=== PATIENT | female | born 1995 | race African-American/Black ===

== ENCOUNTER → 2019-10-09 | Outpatient (REF) | payer OTHER ==
[2019-10-09 18:42] LABS: BASO % 0.2 % (0.0-1.0); EOS # 0.3 10^3/uL (0.0-0.5); EOS % 6.1 % (0.0-3.0); LYMPH # 2.5 10^3/uL (1.5-5.0); LYMPH % 60.7 % (24.0-44.0); MEAN CORPUSCULAR HEMOGLOBIN 35.1 pg (27.0-33.0); MEAN CORPUSCULAR HGB CONC 33.2 g/dl (32.0-36.5); MEAN CORPUSCULAR VOLUME 105.9 fl (80.0-96.0); MONO # 0.2 10^3/uL (0.0-0.8); MONO % 3.9 % (0.0-5.0); NEUTROPHILS # 1.2 10^3/uL (1.5-8.5); NEUTROPHILS % 28.1 % (36.0-66.0); PLATELET COUNT, AUTOMATED 119 10^3/uL (150-450); RED BLOOD COUNT 1.85 10^6/uL (4.00-5.40); WHITE BLOOD COUNT 4.1 10^3/uL (4.0-10.0)
[2019-10-09 18:58] LABS: HEMATOCRIT 19.6 % (36.0-47.0); HEMOGLOBIN 6.5 g/dl (12.0-15.5)
[2019-10-09 19:19] LABS: ALBUMIN 4.3 GM/DL (3.2-5.2); ALT/SGPT 41 U/L (12-78); BILIRUBIN,TOTAL 1.3 MG/DL (0.2-1.0); BLOOD UREA NITROGEN 11 MG/DL (7-18); CARBON DIOXIDE LEVEL 26 MEQ/L (21-32); CHLORIDE LEVEL 105 MEQ/L (98-107); CHOLESTEROL LEVEL 120 MG/DL (<200); CREATININE FOR GFR 0.73 MG/DL (0.55-1.30); FREE T4 1.39 NG/DL (0.76-1.46); GLOMERULAR FILTRATION RATE > 60.0 (>60); GLUCOSE, FASTING 77 MG/DL (70-100); HDL CHOLESTEROL 32 MG/DL (>40); HEMOGLOBIN A1c 5.6 %; LDL CHOLESTEROL 72 MG/DL (<100); NON-HDL-C 88 MG/DL; POTASSIUM SERUM 3.5 MEQ/L (3.5-5.1); SODIUM LEVEL 139 MEQ/L (136-145); TOTAL PROTEIN 7.5 GM/DL (6.4-8.2); TRIGLYCERIDES LEVEL 81 MG/DL (<150)
[2019-10-09 19:37] LABS: TOTAL 25(OH) VITAMIN D 8.4 NG/ML (30.0-100.0)
== END ==
LOC: M LAB REF 18:07
PROVIDERS: ATTEND Nurse Practitioner Family
DX: Z13.29 Encounter for screening for other suspected endocrine disorder (principal)

== ENCOUNTER 2019-10-19 15:45 | Inpatient (IN) | payer OTHER ==
[~2019-10-19] VITALS: Ht 160 cm; Wt 60.9 kg
[2019-10-19] VITALS (8 sets, daily range): BP systolic 86–121; BP diastolic 54–78
[2019-10-19 16:22] LABS: MEAN CORPUSCULAR HEMOGLOBIN 33.9 pg (27.0-33.0); MEAN CORPUSCULAR HGB CONC 31.9 g/dl (32.0-36.5); MEAN CORPUSCULAR VOLUME 106.2 fl (80.0-96.0); RED BLOOD COUNT 1.77 10^6/uL (4.00-5.40)
[2019-10-19 16:27] LABS: PLATELET COUNT, AUTOMATED 46 10^3/uL (150-450); WHITE BLOOD COUNT 1.4 10^3/uL (4.0-10.0)
[2019-10-19 16:28] LABS: HEMATOCRIT 18.8 % (36.0-47.0)
[2019-10-19 16:51] LABS: HCG, SERUM QUALITATIVE NEGATIVE (NEGATIVE)
[2019-10-19 17:08] LABS: ANISOCYTOSIS 2+; ATYPICAL LYMPH 6 % (0-5); BASOPHILS 1 % (0-1); EOSINOPHILS 1 % (0-3); HYPOCHROMASIA 1+; LYMPHOCYTES 37 % (16-44); MONOCYTES 8 % (0-5); MYELOCYTES 2 % (0-0); NEUTROPHILS 44 % (28-66)
[2019-10-19 17:09] LABS: ALBUMIN 4.3 GM/DL (3.2-5.2); ALT/SGPT 35 U/L (12-78); BLOOD UREA NITROGEN 15 MG/DL (7-18); CALCIUM LEVEL 8.4 MG/DL (8.5-10.1); CARBON DIOXIDE LEVEL 23 MEQ/L (21-32); CHLORIDE LEVEL 99 MEQ/L (98-107); CREATININE FOR GFR 0.93 MG/DL (0.55-1.30); FERRITIN 696 NG/ML (8-252); FREE THYROXINE INDEX 3.4 % (1.3-4.8); GLOMERULAR FILTRATION RATE > 60.0 (>60); GLUCOSE, FASTING 92 MG/DL (70-100); IRON (FE) 122 UG/DL (50-170); PERCENT SATURATION 39.4 % (13.2-45.0); PLATELET ESTIMATE DECREASED (NORMAL); POTASSIUM SERUM 3.8 MEQ/L (3.5-5.1); SODIUM LEVEL 134 MEQ/L (136-145); SPHEROCYTES 2+; T UPTAKE 28 % (30-39); THYROXINE (T4) 12.3 UG/DL (4.5-12.0); TOTAL IRON BINDING CAPACITY 310 UG/DL (250-450); TOTAL PROTEIN 7.5 GM/DL (6.4-8.2)
[2019-10-19 17:21] LABS: INR 1.18; PROTHROMBIN TIME 14.7 SECONDS (11.8-14.0)
[2019-10-19 17:22] LABS: PARTIAL THROMBOPLASTIN TIME 32.9 SECONDS (25.0-38.4)
[2019-10-19 18:12] LABS: BILIRUBIN,DIRECT 0.3 MG/DL (0.0-0.2)
[2019-10-19 18:15] LABS: LDH LACTATE DEHYDROGENASE 4896 U/L (84-246)
[2019-10-19] MEDS ORDERED: ACETAMINOPHEN TAB 650MG DOSE (2X325MG) PO ONE (19:45)
[2019-10-19] MEDS ORDERED: ACETAMINOPHEN 325 MG TAB As Ordered ONE (19:45)
--- NOTE | 2019-10-19 19:57 | HPEPDOC ---
General Date of Admission Oct 19, 2019 at 19:06 Date of Service: Oct 19, 2019 Chief Complaint The patient is a 24-year-old female admitted with a reason for shortness of breath with exertion Source: Patient, EMS notes reviewed Exam Limitations: No limitations Timing/Duration: Getting worse Severity: Moderate Associated Symptoms: Chills, Loss of appetite, Dizziness History of Present Illness Pt is a 24 year old female who presented to the ED with symptoms of fatigue, dizziness on standing and loss of appetite. Pt reported Sx of fatigue started x 1 month prior; She felt tired after a full night sleep; some dizziness & blurred vision on standing. Appetite had also decreased, she went from 3 to 1 meal/day as she wasn't hungry. Fatigue worsened over the past 2-3 days, last night she noted chills. Pt denied similar episodes in the past. She has some RLQ pain but attributes that to constipation x 1 week - this is a chronic issue. A cousin is the only person who has needed transfusions wile . She denied any recent travel. Daughter has a cold. is active . She is not menstruating. Too iron while but no Dx of anemia prior or since. 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 Pt had seen her PCP on the who advised her to go to hospital for assessment however, she hadn't felt 'bad' until the past couple of days. Home Medications No Active Prescriptions or Reported Meds Allergies Coded Allergies: No Known Allergies (Unverified , 10/19/19) Past Medical History Medical History unremarkable Surgical History none Family History Significant Family History: Noncontributory Patient's family history was reviewed and is currently noncontributory to current hospitalization Social History * Smoker: Denies Alcohol: rarely (2-3 glasses of wine weekends ) Drugs: denies Recent Travel/Sick Contacts: Denies: Recent travel with one daughter, 2 yo. 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 Previously a [id number] mother. A-FIB/CHADSVASC A-FIB History Current/History of A-Fib/PAF?: No Current PO Anticoag Therapy: No Review of Systems Constitutional: Reports: Fatigue; Denies: Fever, Night Sweats Eyes: Reports: Vision change (blurred vision ); Denies: Pain ENT: Reports: Head Aches; Denies: Ear Pain Skin: Denies: Rash, Lesions, Breakdown Pulmonary: Denies: Dyspnea, Cough Cardiovascular: Denies: Chest Pain, Palpitations, Edema Gastrointestinal: Reports: Abdominal Pain (RLQ ), Constipation; Denies: Nausea, Vomiting, Diarrhea, Melena Genitourinary: Reports: Incontinence; Denies: Dysuria, Frequency, Hematuria Hematologic: Denies: Bruising Musculoskeletal: Denies: Neck Pain, Back Pain, Joint Pain, Muscle Pain, Spasms Neurological: Denies: Weakness, Numbness, Change in speech, Confusion Psych: Reports: Mood Normal; Denies: Memory Issues Physical Examination General Exam: Positive: Alert, Cooperative, No Acute Distress Eye Exam: Positive: PERRLA, Conjunctiva & lids normal, EOMI; Negative: Sclera icteric ENT Exam: Positive: Atraumatic, Mucous membr. moist/pink, Pharynx Normal, Tongue Midline; Negative: Pharyngeal Edema Neck Exam: Positive: Supple; Negative: JVD, thyromegaly, Lymphadenopathy Chest Exam: Positive: Clear to auscultation, Normal air movement Heart Exam: Positive: Tachycardic, Regular Rhythm, Normal S1, Normal S2; Negative: Gallops, Murmurs, Rubs Abdomen Exam: Positive: BS Hypoactive, Soft, Tenderness (RLQ); Negative: Hepatospenomegaly, Mass Extremity Exam: Positive: Normal pulses; Negative: Clubbing, Cyanosis, Edema Skin Exam: Positive: Nl turgor and temperature; Negative: Rash Neuro Exam: Positive: Normal Speech, Strength at 5/5 X4 ext Psych Exam: Positive: Mental status NL, Mood NL, Oriented x 3 Vital Signs Vital Signs Date Time Temp Pulse Resp B/P (MAP) Pulse Ox O2 Delivery O2 Flow Rate FiO2 10/19/19 18:15 114 16 117/60 (79) 99 Room Air 10/19/19 15:45 97.8 Laboratory Data Labs 24H Laboratory Tests 2 10/19/19 16:07: Neutrophils # (Auto) , Reticulocyte # (auto) 3.7L, Nucleated Red Blood Cells % (auto) 0.0, Neutrophils 44, Band Neutrophils 1, Lymphocytes (Manual) 37, Monocytes (Manual) 8H, Eosinophils (Manual) 1, Basophils (Manual) 1, Myelocytes 2H, Atypical Lymphocytes 6H, Hypochromasia 1+, Anisocytosis 2+, Macrocytosis 2+, Spherocytes 2+, Platelet Estimate DECREASED, Immature Platelet Fraction 4.5, Percent Reticulocyte Count 0.2L, Reticulocyte Hemoglobin Equivalent 41.2H, Sickle Cell Screen NEGATIVE, Prothrombin Time 14.7H, Prothromb Time International Ratio 1.18, Activated Partial Thromboplast Time 32.9, Fibrinogen 247, Anion Gap 12, Glomerular Filtration Rate > 60.0, Calcium Level 8.4L, Iron Level 122, Total Iron Binding Capacity 310, Transferrin % Saturation 39.4, Ferritin 696H, Total Bilirubin 1.0, Direct Bilirubin 0.3H, Aspartate Amino Transf (AST/SGOT) 118H, Alanine Aminotransferase (ALT/SGPT) 35, Alkaline Phosphatase 36L, Lactate Dehydrogenase 4896H, Total Protein 7.5, Albumin 4.3, Albumin/Globulin Ratio 1.34, Thyroid Stimulating Hormone (TSH) 1.010, Free Thyroxine Index 3.4, Thyroxine (T4) 12.3H, Triiodothyronine (T3) Uptake 28L, Human Chorionic Gonadotropin, Qual NEGATIVE 10/19/19 17:21: Differential Slide Review Report, Peripheral Blood Smear Path Consult PERIPHERAL SMEAR CBC/BMP Laboratory Tests 10/19/19 16:07 Microbiology Microbiology 10/19/19 Blood Culture, Received Pending 10/19/19 Blood Culture, Received Pending Assessment/Plan Pt is a 24 year old female who presented to the ED with symptoms of fatigue, dizziness on standing and loss of appetite. Pt reported Sx of fatigue started x 1 month prior; She felt tired after a full night sleep; some dizziness & blurred vision on standing. Appetite had also decreased, she went from 3 to 1 meal/day as she wasn't hungry. Fatigue worsened over the past 2-3 days, last night she noted chills. Pt denied similar episodes in the past. She has some RLQ pain but attributes that to constipation x 1 week - this is a chronic issue. A cousin is the only person who has needed transfusions wile . She denied any recent travel. Daughter has a cold. is active . She is not menstruating, has never been told she is anemic. 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 Pt had seen her PCP on the who advised her to go to hospital for assessment however, she hadn't felt 'bad' until the past couple of days. Pt is conversant when seen sitting up in bed. NAD. Pancytopenia - hgb 6.0, WBC, 1.4, RBC 1.77, Plt 46, retic 3.7. LDH is 4896. SS screen negati ve. Symptomatic anemia Pending: peripheral smear, haptoglobin, B12, Folate, IS, HIV Ag/Ab, Direct Gonzalez, Flow cyto, UA reflex culture, liver USG, KUB, blood culture X 2 Transfuse 3 units PRBCs Will c/w telemetry monitorign Repeat CBC with diff. am; daily CBC, BMP Hematology consulted and has seen the pt in the ER (Dr. Erika Altamirano) Leukopenia Hepatitis Profile / HIV workup pending Thrombocytopenia No evidence of bleeding at this time Remains hemodynamically stable Continue to monitor counts Elevated AST / ALT - Will check Hepatitis profile - Liver US pending Fever (101.2) - Etiology unclear - ROS negative for any source - Hemodynamically stable - No lactic acidosis - Blood cultures pending, UA / urine culture pending - Will continue to monitor Hyponatremia (mild) - possibly 2/2 hypotonic hypovolemic etiology - Will hold off on work up at this point - Will repeat lab work in AM DVT prophylaxis - TEDs/sequentials Plan / VTE VTE Prophylaxis Ordered?: Yes Attending Note Attending Note I have reviewed the documentation and assessed the patient independently. I have made necessary revisions as needed. I agree with the findings, assessment and plan stated above. - Patient presented to the emergency room after complaining of shortness of breath with exertion - Physical is unrevealing; however, patient was noted to be febrile in the emergency room at 101.2 - Lab work revealed a hemoglobin of 6.0; as well as pancytopenia. WBC of 1.4, ANC of 630 - Lactic acid has been noted to be negative - Will perform full septic workup; chest x-ray, blood cultures, urine analysis, urine cultures - Will start cefepime for empiric coverage of febrile neutropenia - Will start 2 units of PRBC transfusion - Hematology has been called on consultation; patient was evaluated in the emergency room RAGHAV WRIGHT PA-C Oct 19, 2019 19:57 JOSAFAT PAULINO MD Oct 20, 2019 02:06
--- NOTE | 2019-10-19 22:06 | CR ---
DATE OF CONSULTATION: 10/19/2019 REASON FOR CONSULTATION: Pancytopenia. HISTORY OF PRESENT ILLNESS: Erika is a 24-year-old who we were asked to see in consultation for the above. She complains of a one month history of fatigue, went to her primary care provider (PCP) on 10/09/2019, hemoglobin was 6.5, platelets mildly low at 119, MCV 105.9, WBC 4.1, ANC 1.2, nucleated RBCs 1.0. She was advised an ER evaluation at the time, but states she did not follow her PCPs instructions as "I had other things going on." Over the past two days, she noticed increasing fatigue. She had headache 3/10, band-like, across her forehead, starting this morning. Currently, she states it is about 1-2/10, "almost gone". She had mild dizziness this morning while walking at home, but currently is comfortable without any dizziness while resting in bed. She states she chronically has intermittent chest pain "depending on what I eat." She developed chest pain last night after eating some fried chicken, 8/10 in intensity, lasted about 6 hours, she did not seek any medical attention. States by the time she woke up this morning it had resolved. She also complains about a 20 pound weight loss in about the past month without any alteration in diet, no addition of exercise. Denies any recent infections, no history of travel. Otherwise, she has chronic constipation since childhood - has one bowel movement every other week. Her last bowel movement was 7 days ago. Sometimes she takes a laxative - the name of which she cannot recall at this time. She had one episode of vomiting this morning. Denies any green or bilious vomiting, no projectile vomiting, denies any coffee-ground emesis or blood. Otherwise, she has some chronic back pain as of 2 years ago since her delivery. She has not had this evaluated. She denies any other complaints. REVIEW OF SYSTEMS: Constitutional: No fevers, no chills, no night sweats, no malaise. Cardiopulmonary: Currently, no chest pain, no SOB, no palpitations, no dizziness. No cough. No hemoptysis. Gastrointestinal: No pain, nausea, diarrhea. No hematemesis, no melena or hematochezia. Chronic intermittent constipation since childhood with bowel movement (BM) every other week. Genitourinary: No dysuria, no hematuria, incontinence, frequency, no urgency. Musculoskeletal: Chronic back pain since delivery 2 years ago. No other new bony pain, no muscle pain, no joint aches or pains. WHISKEY FILTERER: No tingling, weakness, numbness. No dizziness, seizures, no speech, no visual disturbances. All other systems, are negative unless otherwise specified in HPI. PAST MEDICAL/SURGICAL HISTORY: Chronic low back pain since delivery in 2018, chronic constipation since childhood. MEDICATIONS: Nil. ALLERGIES: NKDA. SOCIAL HISTORY: Smoking/Drugs - Patient denies a history of smoking or drug use. Alcohol - About two glasses of wine on occasional weekends. Denies any heavy use. Denies multiple sexual partners, no IV drug use. Has tatoos on bilateral forearms and chest. FAMILY HISTORY: Patient denies any family history of malignancies or blood dyscrasias. VITAL SIGNS: Reviewed in EMR - stable. PHYSICAL EXAM: HEENT: EOMI, oral mucosa - pink and moist, no conjunctival pallor, sclera anicteric bilaterally. LYMPHATICS: No cervical, supraclavicular, axillary or inguinal LAD. LUNGS: Clear to auscultation bilaterally, resonant to percussion bilaterally. HEART: Regular rhythm, no murmurs, no S3, S4, no rubs. ABDOMEN: Soft, nontender, bowel sounds normoactive, no hepatosplenomegaly. EXTREMITIES: No edema bilaterally. Calves, nontender bilaterally. SKIN/NAILS: No nail changes. No petechiae/ecchymosis. Tatoos- bilateral forearms and chest. No rashes. MUSCULOSKELETAL: Spine nontender to palpation. INVESTIGATIONS: Reviewed in the EMR. ASSESSMENT/PLAN: 1. Pancytopenia with macrocytic symptomatic anemia with fatigue, mild dizziness, - - currently resolved while resting in bed and 1 month history of 20 pound weight loss. Thus far, per available labs, patient has reticulocytopenia indicating a marrow lag response. Peripheral smear review revealed no schistocytes. Hypochromia was noted. Several artifacts noted on slide, reactive lymphocytes noted, no obvious hypersegmented neutrophils, no obvious blast-like cells, monocytes noted, few large platelets noted. A formal peripheral smear review by Pathologist has been requested. Workup to evaluate for an occult infection as the potential cause of her pancytopenia was initiated in the ER. However, I suspect an underlying marrow process with reticulocytopenia. For further evaluation, B12 and folate have been ordered and is pending at this time. Iron indices reveal no evidence of iron deficiency, but an elevated ferritin - 696 c/w acute phase reactant. Direct Gonzalez and total bilirubin was within normal limits at 1.0. Haptoglobin is pending, of note a lactate dehydrogenase (LDH) is elevated at more than 4000. The TSH was within normal limits - thus no evidence of an abnormal thyroid state to be a cause of her anemia. Patient consented to an HIV testing. Platelets declined to 46 over the past 10 days, patient is alert, awake, oriented, has no fevers. Creatinine is within normal limits, no schistocytes on smear, no evidence of hemolysis - thus far no evidence of thrombotic thrombocytopenic purpura (TTP). Pro-time (PT) is mildly elevated at 14.7. INR and partial thromboplastic time (PTT) are within normal limits, as is a fibrinogen at 247, though low normal. Repeat coagulation parameters and fibrinogen in morning to note a disseminated intravascular coagulation (DIC) panel trend. Currently, the patient has no evidence of bleeding. Obtain peripheral blood flow cytometry with cytogenics and fluorescence in situ hybridization (FISH) to evaluate pancytopenia. Patient currently appears to be stable. Two units of packed red blood cells (RBCs) have been ordered by Dr. Amezquita. Discussed with the patient that she may need a bone marrow biopsy especially if pending labs return normal. If acute leukemia (though did not see any circulating blasts on the peripheral smear) or aplastic anemia has been identified, she would require transfer to a tertiary care institution per d/w my Heme-Onc colleagues. Elevated aspartate aminotransferase (AST) - ultrasound of the liver has been ordered. A complete metabolic panel (CMP) will need to be monitored in the morning. Cause of 20 pound weight loss in one month is unclear at this point but with an elevated LDH> 4000, pancytopenia, recommend CT CAP to evaluate for malignancy/lymphoma. Will sign out to Dr. Liriano in the morning. Meanwhile, please do not hesitate to call us with any questions. Discussed with Dr. Amezquita/ER and Dr. Wilson/Hospitalist. All of the above was relayed to the patient who was given an opportunity to ask questions that were answered to satisfaction. The patient voiced an understanding and agreed to proceed. Thank you for asking us to see this patient in consultation. It is always a privilege and pleasure to participate in the care of your patients.
[2019-10-20] VITALS (11 sets, daily range): BP systolic 101–128; BP diastolic 59–81
--- NOTE | 2019-10-20 01:57 | REP ---
Clinical: Abdominal pain. Constipation. Technique: Single supine view of the abdomen and pelvis. Findings: No bowel obstruction or perforation. Fecal stasis suggested. No organomegaly. No abnormal calcifications. Skeletal structures intact. Impression: Mild fecal stasis. Electronically Signed by Alonso Beard MD 10/20/2019 01:48 A
[2019-10-20] MEDS: CEFEPIME HCL 2 GM in D5W MINI-BAG PLUS 50 ML IV SCH ×3 (04:32→18:51)
[2019-10-20 06:12] LABS: BASO % 1.4 % (0.0-1.0); EOS # 0.1 10^3/uL (0.0-0.5); EOS % 3.4 % (0.0-3.0); HEMATOCRIT 30.6 % (36.0-47.0); LYMPH % 65.1 % (24.0-44.0); MEAN CORPUSCULAR HEMOGLOBIN 32.4 pg (27.0-33.0); MEAN CORPUSCULAR VOLUME 95.3 fl (80.0-96.0); MONO # 0.1 10^3/uL (0.0-0.8); MONO % 4.1 % (0.0-5.0); NEUTROPHILS % 25.3 % (36.0-66.0); RED BLOOD COUNT 3.21 10^6/uL (4.00-5.40)
--- NOTE | 2019-10-20 06:24 | REP ---
Portable chest, 02:41 a.m., single AP view, the patient is upright: There are no comparisons. The lung benjamin are clear. The cardiac size is normal. The ruth and mediastinum are unremarkable. There is mild scoliosis convex right. Probable fracture of the right humeral neck, age indeterminate. Electronically Signed by Xiang Ocampo MD 10/20/2019 06:16 A
[2019-10-20 06:32] LABS: HEMOGLOBIN 10.4 g/dl (12.0-15.5); NEUTROPHILS # 0.4 10^3/uL (1.5-8.5); PLATELET COUNT, AUTOMATED 39 10^3/uL (150-450); WHITE BLOOD COUNT 1.5 10^3/uL (4.0-10.0)
[2019-10-20 07:12] LABS: BLOOD UREA NITROGEN 11 MG/DL (7-18); CALCIUM LEVEL 7.9 MG/DL (8.5-10.1); CARBON DIOXIDE LEVEL 28 MEQ/L (21-32); CHLORIDE LEVEL 107 MEQ/L (98-107); CK-MB VALUE MASS < 1.0 NG/ML (<3.6); CPK CREATINE PHOSPHOKINASE 46 U/L (26-192); CREATININE FOR GFR 0.65 MG/DL (0.55-1.30); GLOMERULAR FILTRATION RATE > 60.0 (>60); GLUCOSE, FASTING 78 MG/DL (70-100); MB/CK RELATIVE INDEX 2.17 (< OR =4); POTASSIUM SERUM 3.7 MEQ/L (3.5-5.1); SODIUM LEVEL 139 MEQ/L (136-145); TROPONIN I < 0.02 NG/ML (< 0.10)
[2019-10-20 08:19] LABS: INR 1.15; PROTHROMBIN TIME 14.5 SECONDS (11.8-14.0)
[2019-10-20 08:20] LABS: FIBRINOGEN 223 MG/DL (221-452); PARTIAL THROMBOPLASTIN TIME 31.3 SECONDS (25.0-38.4)
[2019-10-20 08:34] LABS: ALBUMIN 3.9 GM/DL (3.2-5.2); BILIRUBIN,DIRECT 0.5 MG/DL (0.0-0.2); BILIRUBIN,TOTAL 1.9 MG/DL (0.2-1.0); TOTAL PROTEIN 6.8 GM/DL (6.4-8.2)
[2019-10-20 09:06] LABS: D-DIMER QUANT > 4000 ng/ml (<500)
[2019-10-20] MEDS ORDERED: FLUTICASONE PROP 0.05% NASAL SPRAY 16 GM (FLONASE) NARES PRN (09:15)
--- NOTE | 2019-10-20 09:20 | REP ---
Abdominal right upper quadrant ultrasound for elevated liver function tests: There is no cholelithiasis, gallbladder wall thickening or pericholecystic fluid. There is no intrahepatic or extrahepatic biliary duct dilatation. The common biliary duct measures 3 ml in diameter. In the hepatic parenchyma is homogeneous. There are no hepatic solid or cystic masses. The visualized areas of the pancreas are unremarkable. The right kidney is normal size measuring 10.9 x 5.2 x 4.2 cm. There are no solid or cystic right renal masses. No right renal calculi are identified. No right renal hydronephrosis is identified. No right upper quadrant free fluid is identified. Impression: Essentially negative abdominal right upper quadrant ultrasound. Electronically Signed by Xiang Ocampo MD 10/20/2019 09:13 A
[2019-10-20 10:30] LABS: FOLATE > 24.0 NG/ML (>5.4); VITAMIN B12 LEVEL 107 PG/ML (247-911)
[2019-10-20 10:48] LABS: HEPATITIS B SURFACE ANTIGEN NEGATIVE (NEGATIVE)
[2019-10-20 11:10] LABS: HIV 1&2 SCREEN CENTAUR NEGATIVE (NEGATIVE)
[2019-10-20] MEDS: FEXOFENADINE 60 MG TAB PO SCH (11:10)
[2019-10-20 11:16] LABS: HEPATITIS B CORE ANTIBODY IGM NEGATIVE (NEGATIVE)
[2019-10-20 11:18] LABS: HEPATITIS A ANTIBODY IGM NEGATIVE (NEGATIVE)
[2019-10-20] MEDS: CYANOCOBALAMIN 1,000 MCG/ML VIAL (J3420) IM SCH (13:36)
--- NOTE | 2019-10-20 17:42 | IPNPDOC ---
Date Seen The patient was seen on 10/20/19. Progress Note SUBJECTIVE: seen and examined this morning while sitting upright on the side of her hospital bed. She reports an episode of chills earlier this morning that spontaneously resolved. She otherwise reports no adverse events overnight and states she feels much better than she did yesterday. She is ambulating to and from the bathroom without any issue. Patient was able to have a shower this morning and denied any associated shortness of breath, weakness, or other symptoms. Patient denies fever, night sweats, headache, lightheadedness, dizziness, syncope, chest pain or pressure, palpitations, shortness of breath, cough, abdominal pain, feeling nauseated, vomiting, issues with bowel movements or urination, or numbness/paresthesias at this time. Patient endorses chronic constipation. OBJECTIVE PHYSICAL EXAMINATION: VITAL SIGNS: Please see below. GENERAL: Pleasant young -Tog[place] female. Well-nourished, well-developed. Does not appear to be in acute distress of any kind. Alert and oriented 3. HEENT: Normocephalic, atraumatic. Anicteric and noninjected sclera. PERRLA. No pharyngeal exudate or erythema. No palpable anterior or posterior cervical lymphadenopathy. Neck is supple. Trachea is midline CARDIOVASCULAR: Tachycardic with regular rhythm. S1, S2 auscultated. No murmurs or rubs appreciated. RESPIRATORY: Clear to auscultation bilaterally, with no wheezes, crackles or rhonchi appreciated. Speaking in full sentences. Breathing on room air. Symmetric chest expansion with adequate tidal volume. ABDOMINAL: Soft, nondistended. Mild tenderness. Umbilical in mid lower abdomen. No guarding, rebound or rigidity appreciated. No hepatosplenomegaly appreciated. Bowel sounds present all 4 quadrants. EXTREMITIES: 2+ radial and posterior tibial pulses bilaterally. No lower extremity edema. NEUROLOGICAL: Awake, alert and oriented 3. No focal neurological deficits ninfa reciated. Responds appropriately to questions and commands. PSYCHOLOGICAL: Affect and mood appear appropriate. LABORATORY DATA, IMAGING STUDIES, MICROBIOLOGY: Please see below. IMAGING: Abdominal flat plate KUB. 10/19/19: Mild fecal stasis with no bowel obstruction or perforation. Abdominal right upper quadrant ultrasound for elevated LFTs, 10/20/19: Essentially negative abdominal right upper quadrant ultrasound. Portable chest x-ray, 10/20/19: Likely fracture of right humeral neck (age-indeterminate) with mild scoliosis, convex right. Otherwise, lung benjamin are clear with normal cardiac size and unremarkable ruth and mediastinum. ASSESSMENT AND PLAN: This is a 24-year-old female with an unremarkable past medical history who presented to the emergency department with fatigue, shortness of breath with exertion, constipation, dizziness and blurred vision, chills and loss of appetite; she was admitted primarily for treatment of symptomatic anemia, to determine the cause of her pancytopenia; her course has been complicated by the development of neutropenic fever. #Pancytopenia, likely secondary to vitamin B12 deficiency -Other less possible causes in the differential include lymphoma, leukemia and aplastic anemia -WBC 1.5, hemoglobin 10.4 with MCV 95%, platelet count of 39 after PRBCx -Patient consented to HIV testing -Potential for bone marrow biopsy should patient's cell lines, not come up after initiation of vitamin B12 shots -Calculated absolute neutrophil count of 394.5 today, indicating severe neutropenia #Neutropenic fever -Spiked 101.2 fever last night -empiric antibiotic monotherapy coverage for neutropenic fever started with cefepime -With neutropenic fever, tenderness may continue to intermittently spike within the first 24 hours of antibiotic initiation -Should patient display signs of a complicated clinical presentation (such as mental status changes, focal findings [i.e., pneumonia, cellulitis], or hypertension), combination antibiotic therapy in the form of a beta-lactam agent and aminoglycoside or beta-lactam and ciprofloxacin can be started. -Vital signs to be checked every 6 hours -Hematology oncology (Dr. Liriano) following patient -Calculated absolute neutrophil count of 394.5 today, indicating severe neutropenia -Ordered Neutropenic Precautions #Vitamin B12 deficiency -Vitamin B12 level significantly reduced at 107 -IM injections of cyanocobalamin initiated today. Regimen will consist of 1000 g daily for the first 5 days, followed by 1000 microgram injections weekly for 1 month, and then followed with monthly injections of 1000 g. -Patient will likely need outpatient neuro consultation -Spoke with job cost estimator following along with patient (Dr. Liriano) who states the white count should rise in the next 24-48 hours after B12 shot initiation -Anti-intrinsic factor antibody assay and antiparietal cell antibody assay ordered in context of B12 deficiency #Normocytic normochromic anemia -Absolute reticulocyte count of 0.1, indicating hypo-proliferat ion/reticulocytopenia consistent with a marrow lag response -Peripheral smear showed teardrop cells that are consistent with possible hemolytic process. LDH and haptoglobin ordered. -Initial iron indices revealed no evidence of iron deficiency with an elevated ferritin consistent with an acute phase reaction -Direct Gonzalez, and total bilirubin were within normal limits -TSH was within normal limits, indicating this is not cause of anemia -Per hematology oncology (Dr. Liriano), patient would likely require upper GI endoscopy when she is well due to possible atrophic gastritis and associated po tential for development of gastric lymphoma. #Thrombocytopenia -Platelet count of 39 #Leukopenia -WBC of 1.5 #Elevated AST -Right upper quadrant abdominal ultrasound was essentially negative. #DVT prophylaxis: Teds and sequentials ordered as anticoagulation held due to current anemia DISPOSITION: pending clinical course VS, I&O, 24H, [facility] Vital Signs/I&O Vital Signs Date Time Temp Pulse Resp B/P (MAP) Pulse Ox O2 Delivery O2 Flow Rate FiO2 10/20/19 14:00 101.3 114 22 128/80 (96) 99 Room Air I&O- Last 24 Hours up to 6 AM 10/20/19 06:00 Intake Total 1500 ml Output Total 1600 ml Balance -100 ml Laboratory Data 24H LABS Laboratory Tests 2 10/19/19 23:24: Lactic Acid Level 0.6 10/20/19 03:53: Urine Color STRAW, Urine Appearance CLEAR, Urine pH 6.0, Urine Specific [place] 1.004, Urine Protein NEGATIVE, Urine Glucose (UA) NEGATIVE, Urine Ketones NEGATIVE, Urine Blood NEGATIVE, Urine Nitrite NEGATIVE, Urine Bilirubin NEGATIVE, Urine Urobilinogen 0.2, Urine Leukocyte Esterase NEGATIVE, Urine WBC (Auto) 1, Urine RBC (Auto) 1, Urine Hyaline Casts (Auto) 0, Urine Bacteria (Auto) 1+H, Urine Squamous Epithelial Cells 1, Urine Sperm (Auto) 10/20/19 05:34: Immature Granulocyte % (Auto) 0.7, Neutrophils (%) (Auto) 25.3L, Lymphocytes (%) (Auto) 65.1H, Monocytes (%) (Auto) 4.1, Eosinophils (%) (Auto) 3.4H, Basophils (%) (Auto) 1.4H, Neutrophils # (Auto) 0.4L, Lymphocytes # (Auto) 1.0L, Monocytes # (Auto) 0.1, Eosinophils # (Auto) 0.1, Basophils # (Auto) 0.0, Nucleated Red Blood Cells % (auto) 0.0, Anion Gap 4L, Glomerular Filtration Rate > 60.0, Calcium Level 7.9L, Total Creatine Kinase 46, Creatine Kinase MB < 1.0, Creatine Kinase MB Relative Index 2.17, Troponin I < 0.02, Hepatitis A IgM Antibody NEGATIVE, Hepatitis B Surface Antigen NEGATIVE, Hepatitis B Core IgM Antibody NE GATIVE, Hepatitis C Antibody Index 0.0 10/20/19 07:54: Prothrombin Time 14.5H, Prothromb Time International Ratio 1.15, Activated Partial Thromboplast Time 31.3, Fibrinogen 223, D-Dimer, Quantitative > 4000H, Total Bilirubin 1.9#H, Direct Bilirubin 0.5H, Aspartate Amino Transf (AST/SGOT) 96H, Alanine Aminotransferase (ALT/SGPT) 33, Alkaline Phosphatase 35L, Lactate Dehydrogenase 3522H, Total Protein 6.8, Albumin 3.9, Albumin/Globulin Ratio 1.34 10/20/19 12:29: 10/20/19 12:33: CBC/BMP Laboratory Tests 10/20/19 05:34 Microbiology Microbiology 10/20/19 Respiratory Virus Panel (PCR) ([facility]) - Final, Complete 10/19/19 Blood Culture, Received Pending 10/19/19 Blood Culture, Received Pending GME ATTESTATION GME ATTESTATION My faculty preceptor for this patient encounter was physically present during the encounter and was fully available. All aspects of the patient interview, examination, medical decision making process, and medical care plan development were reviewed and approved by the faculty preceptor. The faculty preceptor is aware and concurs with the plan as stated in the body of this note and will attest to such by his/her cosignature. ATTENDING NOTE I examined Ms. Renteria at 3:38 PM, I reviewed and edited Dr. Estrella's note and ag ree with the findings as documented TIMMY ESTRELLA D.O. Oct 20, 2019 17:42 JACLYN BAJWA MD Oct 20, 2019 19:30
[2019-10-20] MEDS ORDERED: ACETAMINOPHEN TAB 650MG DOSE (2X325MG) PO ONE ×2 (18:15→19:15)
[2019-10-21] MEDS: CEFEPIME HCL 2 GM in D5W MINI-BAG PLUS 50 ML IV SCH ×3 (02:12→18:56)
[2019-10-21] MEDS ORDERED: ACETAMINOPHEN TAB 650MG DOSE (2X325MG) PO PRN (02:30)
[2019-10-21] MEDS: IBUPROFEN 600 MG TAB PO PRN ×2 (03:45→22:13)
[2019-10-21 06:00] VITALS: BP 113/69
[2019-10-21 06:17] LABS: HEMOGLOBIN 9.9 g/dl (12.0-15.5); MEAN CORPUSCULAR HEMOGLOBIN 31.6 pg (27.0-33.0); MEAN CORPUSCULAR VOLUME 95.8 fl (80.0-96.0); RED BLOOD COUNT 3.13 10^6/uL (4.00-5.40); WHITE BLOOD COUNT 2.9 10^3/uL (4.0-10.0)
[2019-10-21 06:18] LABS: PLATELET COUNT, AUTOMATED 39 10^3/uL (150-450)
--- NOTE | 2019-10-21 06:46 | ECGEPIP ---
[facility] Test Date: 2019-10-20 Pat Name: TOBIAS SMILEY Department: Room: [place] [address] Gender: Female Paid Internship: EVELYN : 1995 Requested By: JOSAFAT PAULINO Order Number: [id number] Reading MD: Michael Kirk Measurements Intervals [place] Rate: 126 P: 15 MT: 147 QRS: 36 QRSD: 70 T: 15 QT: 267 QTc: 386 Interpretive Statements Sinus tachycardia Nonspecific T-wave abnormalities Comparison tracing not on file Electronically Signed on 10-21-2019 6:45:37 EST by Michael Kirk
[2019-10-21 06:50] LABS: LDH LACTATE DEHYDROGENASE 3025 U/L (84-246)
[2019-10-21] MEDS: FEXOFENADINE 60 MG TAB PO SCH (09:00)
[2019-10-21] MEDS: CYANOCOBALAMIN 1,000 MCG/ML VIAL (J3420) IM SCH (09:28)
[2019-10-21] MEDS: ACETAMINOPHEN TAB 650MG DOSE (2X325MG) PO PRN (16:29)
--- NOTE | 2019-10-21 17:56 | IPNPDOC ---
Date Seen The patient was seen on 10/21/19. Progress Note SUBJECTIVE: Yajaira was seen and examined this morning while sitting upright in bed. Per nursing, she spiked multiple fevers last night with a Tmax of 104 rectally. She did have some intermittent headaches as well. She denies feeling feverish now and no longer is experiencing headaches. Overnight team added on PRN Tylenol q4h for fever as well as prn ibuprofen q6h for pain and fever. Patient is continuing to tolerate solids and liquids. Patient denies chills, headache, confusion, lightheadedness, syncope, dizziness, chest pain or pressure, palpitations, shortness of breath, abdominal pain, nausea, or vomiting at this time. OBJECTIVE PHYSICAL EXAMINATION: VITAL SIGNS: Please see below. GENERAL: Pleasant young -[place] female. Does not appear to be in acute distress of any kind. Alert and oriented 3. HEENT: Normocephalic, atraumatic. Anicteric and noninjected sclera. No ph aryngeal exudate or erythema. No palpable anterior or posterior cervical lymphadenopathy. Neck is supple. Trachea is midline CARDIOVASCULAR: Tachycardic with regular rhythm. S1, S2 auscultated. No murmurs or rubs appreciated. RESPIRATORY: Clear to auscultation bilaterally, with no wheezes, crackles or rhonchi appreciated. Speaking in full sentences. Breathing on room air. Symmetric chest expansion with adequate tidal volume. ABDOMINAL: Soft, nondistended. Nontender. No guarding, rebound or rigidity appreciated. No hepatosplenomegaly appreciated. Bowel sounds present all 4 quadrants. EXTREMITIES: 2+ radial and posterior tibial pulses bilaterally. No lower extremity edema. NEUROLOGICAL: Awake, alert and oriented 3. No focal neurological deficits appreciated. Responds appropriately to questions and commands. PSYCHOLOGICAL: Affect and mood appear appropriate. LABORATORY DATA, IMAGING STUDIES, MICROBIOLOGY: Please see below. ASSESSMENT AND PLAN: This is a 24-year-old female with an unremarkable past medical history who presented to the emergency department with fatigue, shortness of breath with exertion, constipation, dizziness and blurred vision, chills and loss of appetite; she was admitted primarily for treatment of symptomatic anemia, to determine the cause of her pancytopenia; her course has been complicated by the development of neutropenic fever. Patient found to be significantly low on vitamin B12 and IM cyanocobalamin injections initiated. #Pancytopenia, likely secondary to vitamin B12 deficiency -Other possible causes in the differential include lymphoma, leukemia and aplastic anemia -WBC 2.9, hemoglobin 9.9, platelet count of 39 -Calculated absolute neutrophil count of 394.5 yesterday, indicating severe neutropenia -Potential for bone marrow biopsy should patient's cell lines, not come up after initiation of vitamin B12 shots -Absolute reticulocyte count of 0.1, indicating hypo- proliferation/reticulocytopenia consistent with a marrow lag response -Peripheral smear revealed teardrop cells consistent with hemolytic process; LDH elevated and haptoglobin decreased, which also lines with a hemolytic picture -Initial iron indices revealed no evidence of iron deficiency with an elevated ferritin that is probably elevated due to it being an acute phase reactant -Direct Gonzalez and total bilirubin were within normal limits -TSH was within normal limits, indicating this is not cause of anemia -Per hematology oncology (Dr. Liriano), patient would likely require upper GI endoscopy when she is well due to possible atrophic gastritis and associated potential for development of gastric lymphoma. -Patient consented to HIV testing #Neutropenic fever -Spiked 104 fever (rectally) overnight but has been afebrile this morning -Continue with cefepime for empiric monotherapy coverage for neutropenic fever -With neutropenic fever, temperature may continue to intermittently spike within the first 24 hours of antibiotic initiation -Should patient display signs of a complicated clinical presentation (such as mental status changes, focal findings [i.e., pneumonia, cellulitis], or hypertension), combination antibiotic therapy in the form of a beta-lactam agent and aminoglycoside or beta-lactam and ciprofloxacin can be started. -Vital signs to be checked every 6 hours -Hematology oncology (Dr. Liriano) following patient -Calculated absolute neutrophil count of 394.5 yesterday, indicating severe neutropenia -Continue with Neutropenic Precautions #Vitamin B12 deficiency -Vitamin B12 level significantly reduced at 107 yesterday -Continue with IM cyanocobalamin -Patient will likely need outpatient neuro consultation -Spoke with auction clerk yesterday who is following along with patient (Dr. Liriano). Dr. Liriano states the white count should rise in the next 24-48 hours after B12 shot initiation -Anti-intrinsic factor antibody assay and antiparietal cell antibody assay ordered in context of B12 deficiency #Elevated AST -AST was 96 a day, down from 118 yesterday -Right upper quadrant abdominal ultrasound was essentially negative yesterday. #DVT prophylaxis: Teds and sequentials ordered as anticoagulation held due to current anemia DISPOSITION: pending clinical course VS, I&O, 24H, Fishbone Vital Signs/I&O Vital Signs Date Time Temp Pulse Resp B/P (MAP) Pulse Ox O2 Delivery O2 Flow Rate FiO2 10/21/19 06:34 99.3 10/21/19 06:00 100 15 113/69 (84) 100 Room Air I&O- Last 24 Hours up to 6 AM 10/21/19 06:00 Intake Total 2265 ml Output Total 1750 ml Balance 515 ml Laboratory Data 24H LABS Laboratory Tests 2 10/21/19 05:33: Nucleated Red Blood Cells % (auto) 0.0, Immature Platelet Fraction 4.5, Lactate Dehydrogenase 3025H CBC/BMP Laboratory Tests 10/21/19 05:33 Microbiology Microbiology 10/20/19 Respiratory Virus Panel (PCR) ([facility]) - Final, Complete 10/19/19 Blood Culture - Preliminary, Resulted No growth after 24 hours . All specim... 10/19/19 Blood Culture - Preliminary, Resulted No growth after 24 hours . All specim... GME ATTESTATION GME ATTESTATION My faculty preceptor for this patient encounter was physically present during the encounter and was fully available. All aspects of the patient interview, examination, medical decision making process, and medical care plan development were reviewed and approved by the faculty preceptor. The faculty preceptor is aware and concurs with the plan as stated in the body of this note and will attest to such by his/her cosignature. ATTENDING NOTE I examined the patient at 8:20 AM, reviewed and edited the note and agree with the findings as documented. TIMMY RONQUILLO D.O. Oct 21, 2019 17:56 JACLYN BAJWA MD Oct 21, 2019 19:16
[2019-10-21 22:00] VITALS: BP 115/84
[2019-10-22] MEDS: CEFEPIME HCL 2 GM in D5W MINI-BAG PLUS 50 ML IV SCH ×3 (02:36→18:20)
[2019-10-22 06:00] VITALS: BP 112/61
[2019-10-22 06:15] LABS: HEMATOCRIT 30.3 % (36.0-47.0); HEMOGLOBIN 10.1 g/dl (12.0-15.5); MEAN CORPUSCULAR HEMOGLOBIN 31.9 pg (27.0-33.0); MEAN CORPUSCULAR HGB CONC 33.3 g/dl (32.0-36.5); MEAN CORPUSCULAR VOLUME 95.6 fl (80.0-96.0); PLATELET COUNT, AUTOMATED 35 10^3/uL (150-450); RED BLOOD COUNT 3.17 10^6/uL (4.00-5.40); WHITE BLOOD COUNT 3.3 10^3/uL (4.0-10.0)
[2019-10-22] MEDS: FEXOFENADINE 60 MG TAB PO SCH (09:00)
[2019-10-22] MEDS: CYANOCOBALAMIN 1,000 MCG/ML VIAL (J3420) IM SCH (09:46)
[2019-10-22 10:11] LABS: ATYPICAL LYMPH 2 % (0-5); EOSINOPHILS 7 % (0-3); LYMPHOCYTES 29 % (16-44); MONOCYTES 12 % (0-5); NEUTROPHILS 47 % (28-66)
[2019-10-22 10:12] LABS: PLATELET ESTIMATE MARKED DECREASE (NORMAL)
[2019-10-22 10:13] LABS: ANISOCYTOSIS 2+; OVALOCYTES 1+; POIKILOCYTOSIS 1+
[2019-10-22 10:47] LABS: ALBUMIN 3.9 GM/DL (3.2-5.2); ALT/SGPT 28 U/L (12-78); BILIRUBIN,TOTAL 1.4 MG/DL (0.2-1.0); BLOOD UREA NITROGEN 13 MG/DL (7-18); CARBON DIOXIDE LEVEL 24 MEQ/L (21-32); CHLORIDE LEVEL 100 MEQ/L (98-107); CREATININE FOR GFR 0.91 MG/DL (0.55-1.30); GLOMERULAR FILTRATION RATE > 60.0 (>60); GLUCOSE, FASTING 85 MG/DL (70-100); IRON (FE) 118 UG/DL (50-170); PERCENT SATURATION 45.7 % (13.2-45.0); POTASSIUM SERUM 3.3 MEQ/L (3.5-5.1); SODIUM LEVEL 133 MEQ/L (136-145); TOTAL IRON BINDING CAPACITY 258 UG/DL (250-450); TOTAL PROTEIN 6.6 GM/DL (6.4-8.2)
[2019-10-22 10:55] LABS: VITAMIN B12 LEVEL > 2000 PG/ML (247-911)
[2019-10-22] MEDS: GASTROGRAFIN SOLUTION 30ML PO SCH ×2 (13:32→14:22)
[2019-10-22 14:00] VITALS: BP 149/92
[2019-10-22] MEDS: ACETAMINOPHEN TAB 650MG DOSE (2X325MG) PO PRN (14:25)
[2019-10-22 14:31] LABS: ANTINUCLEAR ANTIBODIES DIRECT Negative (Negative)
[2019-10-22] MEDS ORDERED: ISOVUE-370 76% 100ML VIAL (Q9967) As Ordered ONE (15:33)
--- NOTE | 2019-10-22 16:08 | MEDONCENPD ---
Date/Time of Encounter Date of Encounter: Oct 22, 2019 Encounter came to floor to see patient, off floor in CT, left msg with her nurse to call me when patient is back in room. HASEEB MONTES MD Oct 22, 2019 16:08
--- NOTE | 2019-10-22 16:21 | REP ---
CT of the abdomen and pelvis with IV and oral contrast: There are no comparisons. The visualized lung benjamin are unremarkable. The liver and spleen are homogeneous, normal size and unremarkable. A tiny cyst is incidentally noted in the right lobe of the The gallbladder and pancreas are unremarkable. The adrenals are unremarkable. The kidneys are unremarkable. The abdominal aorta is unremarkable. There are multiple normal-sized periaortic nodes. There is an enlarged periaortic node measuring up to 10 mm short axis. There is no ascites. The bowel is unremarkable. Pelvis: There is a 2.9 cm right adnexal cyst . The left adnexa is unremarkable. The uterus is unremarkable. There is no ascites or adenopathy. The pelvic bowel loops are unremarkable. There are no lytic, blastic or destructive skeletal changes. Impression: There is no adenopathy or ascites. The liver and spleen are unremarkable. There are no lytic, blastic or destructive skeletal changes. The right ovarian cyst. Otherwise, negative CT of the abdomen and pelvis Electronically Signed by Xiang Ocampo MD 10/22/2019 04:11 P
--- NOTE | 2019-10-22 16:49 | IPNPDOC ---
Date Seen The patient was seen on 10/22/19. Progress Note REASON FOR F/U: Pancytopenia. S: Up in bed, not in distress, [id number] Feels well, denies cp, sob, palp, fatigue no abd pain/n/v/c/d no pain or bleeding at any site all admission symptoms resolved per patient PMH/PSH: Chronic low back pain since delivery in 2018 chronic constipation since childhood. MEDS: Reviewed in EMR ALLERGIES: NKDA. VITAL SIGNS: Reviewed in EMR - stable. PHYSICAL EXAM: HEENT: Oral mucosa - pink and moist, no conjunctival pallor, sclera anicteric bilaterally. LUNGS: Clear to auscultation bilaterally, resonant to percussion bilaterally. HEART: Regular rhythm, no murmurs, no S3, S4, no rubs. ABDOMEN: Soft, nontender, bowel sounds normoactive, no hepatosplenomegaly. EXTREMITIES: No edema bilaterally. Calves, nontender bilaterally. SKIN/NAILS: No nail changes. No petechiae/ecchymosis. Tatoos- bilateral forearms and chest. No rashes. INVESTIGATIONS: Reviewed in the EMR. ASSESSMENT/PLAN: 1. 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 20 pound weight loss in one month w/ elevated LDH> 4000, pancytopenia - CT CAP pending to r/o malignancy/lymphoma. If negative could be 2/2 hypermetablic state from significant b12 def - if any suspicous masses identified will need Bx post plts transfusion/under plts transfusion cover 3. Neutropenic fever- cultures neg - s/p IV abx, recommend to complete 14 day course of abx po. D/W Dr. Nguyen/Hospitalist. F/u early next week upon d/c, [facility] front services agent Nia notified to schedule appt upon d/c All of the above was relayed to the patient who was given an opportunity to ask questions that were answered to satisfaction. The patient voiced an understanding and agreed to proceed. VS, I&O, 24H, Fishbone Vital Signs/I&O Vital Signs Date Time Temp Pulse Resp B/P (MAP) Pulse Ox O2 Delivery O2 Flow Rate FiO2 10/22/19 14:00 98.8 88 20 149/92 (111) 100 Room Air I&O- Last 24 Hours up to 6 AM 10/22/19 06:00 Intake Total 1600 ml Output Total 2200 ml Balance -600 ml Laboratory Data 24H LABS Laboratory Tests 2 10/22/19 05:30: Reticulocyte # (auto) 6.1L, Nucleated Red Blood Cells % (auto) 0.0, Neutrophils 47, Band Neutrophils 3, Lymphocytes (Manual) 29, Monocytes (Manual) 12H, Eosinophils (Manual) 7H, Atypical Lymphocytes 2, Poikilocytosis 1+, Anisocytosis 2+, Macrocytosis 2+, Ovalocytes 1+, Platelet Estimate MARKED DECREASE, Percent Reticulocyte Count 0.2L, Reticulocyte Hemoglobin Equivalent 37.0H CBC/BMP Laboratory Tests 10/22/19 05:30 Microbiology Microbiology 10/20/19 Respiratory Virus Panel (PCR) ([facility]) - Final, Complete 10/19/19 Blood Culture - Preliminary, Resulted No Growth after 48 hours. All Specime... 10/19/19 Blood Culture - Preliminary, Resulted No Growth after 48 hours. All Specime... HASEEB MONTES MD Oct 22, 2019 16:49
--- NOTE | 2019-10-22 19:37 | REPVR ---
PROCEDURE INFORMATION: Exam: CT Chest Without Contrast Exam date and time: 10/22/2019 7:04 PM Age: 24 years old Clinical indication: Other: Pancytopenia; Additional info: R/O lymphoma in setting of pancytopenia TECHNIQUE: Imaging protocol: Computed tomography of the chest without contrast. 3D rendering: MIP and/or 3D reconstructed images were created by the technologist. Radiation optimization: All CT scans at this facility use at least one of these dose optimization techniques: automated exposure control; mA and/or kV adjustment per patient size (includes targeted exams where dose is matched to clinical indication); or iterative reconstruction. COMPARISON: CR PORTABLE CHEST X-RAY 10/20/2019 2:39 AM FINDINGS: Lungs: Unremarkable. No consolidation. No masses. Pleural space: Unremarkable. No pneumothorax. No pleural effusion. Heart: Unremarkable. No cardiomegaly. No pericardial effusion. Aorta: Unremarkable. No aortic aneurysm. Lymph nodes: Unremarkable. No enlarged lymph nodes. Bones/joints: Unremarkable. No acute fracture. Soft tissues: Unremarkable. IMPRESSION: No acute findings. Electronically signed by: Clark Bose On 10/22/2019 19:37:01 PM
--- NOTE | 2019-10-22 20:33 | IPNPDOC ---
Date Seen The patient was seen on 10/22/19. Progress Note SUBJECTIVE: Yajaira was seen and examined this morning while sitting upright on the side of her bed. She denies any adverse events overnight. The chills that she experienced yesterday afternoon did not arise overnight. She is eating and drinking without any issues. Her strength and energy level have significantly improved from where they were upon presentation and the preceding month. Patient denies fever, night sweats, headache, change in mentation, chest pain or pressure, palpitations, shortness of breath, abdominal pain, nausea, or vomiting at this time. OBJECTIVE PHYSICAL EXAMINATION: VITAL SIGNS: Please see below. GENERAL: Pleasant young -Iranian female. Does not appear to be in acute distress of any kind. Alert and oriented 3. HEENT: Normocephalic, atraumatic. Anicteric and noninjected sclera. No palpable anterior or posterior cervical, or supraclavicular, lymphadenopathy. Neck is supple. Trachea is midline CARDIOVASCULAR: Tachycardic with regular rhythm. S1, S2 auscultated. No murmurs or rubs appreciated. RESPIRATORY: Clear to auscultation bilaterally, anteriorly and posteriorly. No wheezes, crackles or rhonchi appreciated. Breathing on room air. Symmetric chest expansion with adequate tidal volume. ABDOMINAL: Soft, nondistended. Nontender. No guarding, rebound or rigidity appreciated. Bowel sounds present all 4 quadrants. EXTREMITIES: 2+ radial and posterior tibial pulses bilaterally. No lower extremity edema. NEUROLOGICAL: Awake, alert and oriented 3. No focal neurological deficits appreciated. Responds appropriately to questions and commands. PSYCHOLOGICAL: Affect and mood appear appropriate. LABORATORY DATA, IMAGING STUDIES, MICROBIOLOGY: Please see below. CT abdomen and pelvis with IV and oral contrast, 10/22: There is no adenopathy or ascites. The liver and spleen are unremarkable. There are no lytic, blastic or destructive skeletal changes. The right ovarian cyst. Otherwise, negative CT of the abdomen and pelvis ASSESSMENT AND PLAN: This is a 24-year-old female with an unremarkable past medical history who presented to the emergency department with fatigue, shortness of breath with exertion, constipation, dizziness and blurred vision, chills and loss of appetite; she was admitted primarily for treatment of symptomatic anemia and to determine the cause of her pancytopenia; her course has been complicated by the development of neutropenic fever. Patient found to be significantly low on vitamin B12 and IM cyanocobalamin injections initiated. Patient is also being followed by hematology oncology. #Pancytopenia, likely secondary to vitamin B12 deficiency -Other possible causes in the differential include lymphoma, leukemia and aplastic anemia -WBC 3.3, hemoglobin 10.1, platelet count of 35 -Calculated absolute neutrophil count of 1650 today, indicating no neutropenia. Patient subsequently taken off neutropenic precautions and neutropenic diet. -Patient was seen by hematology oncology (Dr. Altamirano) today. A CT abdomen and pelvis with contrast was ordered which was essentially negative. Dr. Altamirano asked that a CT of the chest also be done to rule out lymphoma or path ology/neoplasm in chest. That was ordered without contrast in order to have study performed today. Should any troubling signs be noticed, CT chest with contrast will likely then follow tomorrow. -Should the chest CT be negative, patient will subsequently be discharged and will follow up outpatient with Dr. Altamirano of hematology and oncology next week. -Dr. Altamirano would like patient to be on antibiotic for a total of 14 days -Absolute reticulocyte count of 0.1, indicating hypo-proliferation/retic ulocytopenia consistent with a marrow lag response -Peripheral smear revealed teardrop cells consistent with hemolytic process; LDH elevated and haptoglobin decreased, which also lines with a hemolytic picture -Initial iron indices revealed no evidence of iron deficiency with an elevated ferritin that is probably elevated due to it being an acute phase reactant -Direct Gonzalez and total bilirubin were within normal limits -TSH was within normal limits, indicating this is not cause of anemia -Per hematology oncology (Dr. Liriano), patient would likely require upper GI endoscopy when she is well due to possible atrophic gastritis and associated potential for development of gastric lymphoma. -Patient consented to HIV testing #Vitamin B12 deficiency -Vitamin B12 level significantly reduced at 107 on 10/20 -Continue with IM cyanocobalamin -Per hematology oncology, patient will likely need outpatient neuro consultation -Spoke with vascular tech yesterday who is following along with patient (Dr. Liriano). Dr. Liriano states the white count should rise in the next 24-48 hours after B12 shot initiation -Anti-intrinsic factor antibody assay and antiparietal cell antibody assay ordered in context of B12 deficiency -Dr. Altamirano would like the patient to be on B12 administration for a total of 7 days #Elevated AST -AST was 94 a day, down from 96 yesterday and 118 on Sunday -Right upper quadrant abdominal ultrasound was essentially negative on 10/20. #DVT prophylaxis: Teds and sequentials ordered as anticoagulation held due to current anemia DISPOSITION: Discharge tomorrow with outpatient heme-onc f/u next week pending negative CT of the chest VS, I&O, 24H, Fishbone Vital Signs/I&O Vital Signs Date Time Temp Pulse Resp B/P (MAP) Pulse Ox O2 Delivery O2 Flow Rate FiO2 10/22/19 14:00 98.8 88 20 149/92 (111) 100 Room Air I&O- Last 24 Hours up to 6 AM 10/22/19 06:00 Intake Total 1600 ml Output Total 2200 ml Balance -600 ml Laboratory Data 24H LABS Laboratory Tests 2 10/22/19 05:30: Reticulocyte # (auto) 6.1L, Nucleated Red Blood Cells % (auto) 0.0, Neutrophils 47, Band Neutrophils 3, Lymphocytes (Manual) 29, Monocytes (Manual) 12H, Eosinophils (Manual) 7H, Atypical Lymphocytes 2, Poikilocytosis 1+, Anisocytosis 2+, Macrocytosis 2+, Ovalocytes 1+, Platelet Estimate MARKED DECREASE, Percent Reticulocyte Count 0.2L, Reticulocyte Hemoglobin Equivalent 37.0H CBC/BMP Laboratory Tests 10/22/19 05:30 Microbiology Microbiology 10/20/19 Respiratory Virus Panel (PCR) ([facility]) - Final, Complete 10/19/19 Blood Culture - Preliminary, Resulted No Growth after 72 hours. All specime... 10/19/19 Blood Culture - Preliminary, Resulted No Growth after 72 hours. All specime... GME ATTESTATION GME ATTESTATION My faculty preceptor for this patient encounter was physically present during the encounter and was fully available. All aspects of the patient interview, examination, medical decision making process, and medical care plan development were reviewed and approved by the faculty preceptor. The faculty preceptor is aware and concurs with the plan as stated in the body of this note and will attest to such by his/her cosignature. ATTENDING NOTE I examined the patient at 859AM, reviewed and edited the note and agree with the findings as documented. TIMMY RONQUILLO D.O. Oct 22, 2019 20:33 JACLYN BAJWA MD Oct 22, 2019 20:35
[2019-10-22 22:00] VITALS: BP 121/76
[2019-10-23] MEDS: CEFEPIME HCL 2 GM in D5W MINI-BAG PLUS 50 ML IV SCH ×3 (03:10→18:34)
[2019-10-23 05:55] LABS: HEMATOCRIT 29.4 % (36.0-47.0); HEMOGLOBIN 9.7 g/dl (12.0-15.5); MEAN CORPUSCULAR HEMOGLOBIN 31.8 pg (27.0-33.0); MEAN CORPUSCULAR VOLUME 96.4 fl (80.0-96.0); RED BLOOD COUNT 3.05 10^6/uL (4.00-5.40); WHITE BLOOD COUNT 2.8 10^3/uL (4.0-10.0)
[2019-10-23 05:56] LABS: PLATELET COUNT, AUTOMATED 34 10^3/uL (150-450)
[2019-10-23 06:00] VITALS: BP 128/73
[2019-10-23] MEDS: FEXOFENADINE 60 MG TAB PO SCH (08:40)
[2019-10-23] MEDS: CYANOCOBALAMIN 1,000 MCG/ML VIAL (J3420) IM SCH (08:41)
[2019-10-23 09:48] LABS: ANISOCYTOSIS 1+; ATYPICAL LYMPH 3 % (0-5); BASOPHILS 1 % (0-1); EOSINOPHILS 9 % (0-3); LYMPHOCYTES 74 % (16-44); MONOCYTES 9 % (0-5); NEUTROPHILS 4 % (28-66); OVALOCYTES 1+; PLATELET ESTIMATE MARKED DECREASE (NORMAL); POIKILOCYTOSIS 1+
[2019-10-23 10:51] LABS: MAGNESIUM LEVEL 2.3 MG/DL (1.8-2.4)
[2019-10-23 14:00] VITALS: BP 127/73
[2019-10-23 14:30] LABS: BILIRUBIN,DIRECT 0.2 MG/DL (0.0-0.2); BILIRUBIN,TOTAL 0.5 MG/DL (0.2-1.0)
--- NOTE | 2019-10-23 15:12 | IPNPDOC ---
Date Seen The patient was seen on 10/23/19. Progress Note SUBJECTIVE: Yajaira was seen and examined this morning while sitting upright in a chair. She reports no adverse events overnight. She denies any recent fevers, chills, or night sweats. She continues to tolerate a full diet. Patient denies any confusion, headache, dizziness, syncope, chest pain or pressure, dyspnea, abdominal pain, nausea, or vomiting at this time. OBJECTIVE PHYSICAL EXAMINATION: VITAL SIGNS: Please see below. GENERAL: Young, interactive -Spanish female. She is alert and oriented 3 and in no apparent acute distress. HEENT: Normocephalic, atraumatic. Anicteric and noninjected sclera. Trachea is midline. CARDIOVASCULAR: Regular rate with regular rhythm. S1, S2 auscultated. No murmurs or rubs appreciated. RESPIRATORY: Clear to auscultation bilaterally, anteriorly and posteriorly. No wheezes, crackles or rhonchi appreciated. Breathing on room air. Symmetric chest expansion with adequate tidal volume. ABDOMINAL: Soft, nondistended. Nontender. No guarding, rebound or rigidity appreciated. Bowel sounds present all 4 quadrants. EXTREMITIES: 2+ radial and posterior tibial pulses bilaterally. No lower extremity edema. NEUROLOGICAL: Awake, alert and oriented 3. No focal neurological deficits appreciated. Responds appropriately to questions and commands. PSYCHOLOGICAL: Affect and mood appear appropriate. LABORATORY DATA, IMAGING STUDIES, MICROBIOLOGY: Please see below. CT abdomen and pelvis with IV and oral contrast, 10/22: There is no adenopathy or ascites. The liver and spleen are unremarkable. There are no lytic, blastic or destructive skeletal changes. The right ovarian cyst. Otherwise, negative CT of the abdomen and pelvis CT chest without contrast, 10/22/19: No acute findings. ASSESSMENT AND PLAN: This is a 24-year-old female with an unremarkable past medical history who presented to the emergency department with fatigue, shortness of breath with exertion, constipation, dizziness and blurred vision, chills and loss of appetite; she was admitted primarily for treatment of symptomatic anemia and to determine the cause of her pancytopenia; her course has been complicated by the development of neutropenic fever. Patient found to be significantly low on vitamin B12 and IM cyanocobalamin injections initiated. Patient is also being followed by hematology oncology. #Pancytopenia, likely secondary to vitamin B12 deficiency -Other possible causes in the differential include lymphoma, leukemia and aplastic anemia -(Today) WBC 2.8, hemoglobin 9.7, platelet count of 34 -Borderline macrocytic normochromic anemia, thrombocytopenia, and leukopenia -Calculated absolute neutrophil count (ANC) of 112 today, indicating absolute (severe) neutropenia. This is a significant decrease from yesterday (ANC 1650). -Neutropenic precautions reordered -Hospitalist team spoke with hematology oncology today - - Dr. Altamirano. Dr. Altamirano recommends the patient remain in the hospital today d/t neutropenia. Dr. Altamirano also recommended that patient be switched to subcutaneous cyanocobalamin rather than IM -Dr. Altamirano will see patient next week at the [facility] for outpatient follow-up -Flow cytometry study sent to [facility] and results are pending -Dr. Altamirano would like patient to be on antibiotics for a total of 14 days -We thank Dr. Altamirano in hematology oncology for following along with patient -Absolute reticulocyte count earlier in stay was low, indicating hypo- proliferation/reticulocytopenia consistent with a marrow lag response -Peripheral smear revealed teardrop cells consistent with hemolytic process; LDH elevated and haptoglobin decreased, which aligns with a hemolytic picture -CT abdomen/pelvis and CT chest performed yesterday (10/22) were essentially unremarkable -Per hematology oncology (Dr. Liriano), patient would likely require upper GI endoscopy when she is well due to possible atrophic gastritis and associated potential for development of gastric lymphoma. #Vitamin B12 deficiency -Vitamin B12 level significantly reduced at 107 on 10/20 -After 3 days of IM cyanocobalamin IM injections, patient's B12 increased to >2000 -Per hematology oncology, cyanocobalamin injections administration switched subcutaneous beginning tomorrow -Patient will likely need outpatient neuro consultation -Anti-intrinsic factor antibody assay was significantly elevated (307.4, nl 0.0- 1.1), indicating patient lacks ability to properly absorb B12 -Day #4 of cyanocobalamin injections. Patient will be prescribed enough cyanocobalamin injections to carry her to outpatient follow-up visit with Dr. Altamirano. Due to her inability to properly absorb B12 through oral tablets or 3 regular diet, patient will be on parenteral cyanocobalamin permanently #DVT prophylaxis: Teds and sequentials ordered as anticoagulation held due to current anemia DISPOSITION: Discharge tomorrow if patient's calculated absolute neutrophil count increases out of neutropenic range. Will eventually be discharged home and follow up with Dr. Altamirano of hematology oncology next week. VS, I&O, 24H, Fishbone Vital Signs/I&O Vital Signs Date Time Temp Pulse Resp B/P (MAP) Pulse Ox O2 Delivery O2 Flow Rate FiO2 10/23/19 06:00 97.5 77 16 128/73 (91) 100 Room Air I&O- Last 24 Hours up to 6 AM 10/23/19 05:59 Intake Total 1870 ml Output Total 1500 ml Balance 370 ml Laboratory Data 24H LABS Laboratory Tests 2 10/23/19 05:32: Neutrophils # (Auto) , Nucleated Red Blood Cells % (auto) 0.7H, Neutrophils 4L, Lymphocytes (Manual) 74H, Monocytes (Manual) 9H, Eosinophils (Manual) 9H, Basophils (Manual) 1, Atypical Lymphocytes 3, Poikilocytosis 1+, Anisocytosis 1+, Macrocytosis 1+, Ovalocytes 1+, Platelet Estimate MARKED DECREASE, Immature Platelet Fraction 5.0, Magnesium Level 2.3 CBC/BMP Laboratory Tests 10/23/19 05:32 Microbiology Microbiology 10/20/19 Respiratory Virus Panel (PCR) ([facility]) - Final, Complete 10/19/19 Blood Culture - Preliminary, Resulted No Growth after 72 hours. All specime... 10/19/19 Blood Culture - Preliminary, Resulted No Growth after 72 hours. All specime... TIMMY RONQUILLO D.O. Oct 23, 2019 15:12
[2019-10-23 22:00] VITALS: BP 118/58
[2019-10-24] MEDS: CEFEPIME HCL 2 GM in D5W MINI-BAG PLUS 50 ML IV SCH ×2 (02:54→12:22)
[2019-10-24 06:00] VITALS: BP 98/58
[2019-10-24 06:43] LABS: HEMATOCRIT 28.9 % (36.0-47.0); HEMOGLOBIN 9.5 g/dl (12.0-15.5); MEAN CORPUSCULAR HGB CONC 32.9 g/dl (32.0-36.5); MEAN CORPUSCULAR VOLUME 97.3 fl (80.0-96.0); RED BLOOD COUNT 2.97 10^6/uL (4.00-5.40); WHITE BLOOD COUNT 2.9 10^3/uL (4.0-10.0)
[2019-10-24 06:46] LABS: PLATELET COUNT, AUTOMATED 38 10^3/uL (150-450)
[2019-10-24 07:08] LABS: ALBUMIN 3.2 GM/DL (3.2-5.2); ALT/SGPT 23 U/L (12-78); BILIRUBIN,TOTAL 0.7 MG/DL (0.2-1.0); BLOOD UREA NITROGEN 10 MG/DL (7-18); CARBON DIOXIDE LEVEL 26 MEQ/L (21-32); CHLORIDE LEVEL 109 MEQ/L (98-107); CREATININE FOR GFR 0.55 MG/DL (0.55-1.30); GLOMERULAR FILTRATION RATE > 60.0 (>60); GLUCOSE, FASTING 86 MG/DL (70-100); POTASSIUM SERUM 3.8 MEQ/L (3.5-5.1); SODIUM LEVEL 141 MEQ/L (136-145)
[2019-10-24 07:18] LABS: ATYPICAL LYMPH 2 % (0-5); EOSINOPHILS 11 % (0-3); LYMPHOCYTES 53 % (16-44); MONOCYTES 9 % (0-5); NEUTROPHILS 25 % (28-66)
[2019-10-24 07:19] LABS: ANISOCYTOSIS 1+; OVALOCYTES 1+; PLATELET ESTIMATE MARKED DECREASE (NORMAL); POIKILOCYTOSIS 1+
[2019-10-24 07:20] LABS: TEAR DROP CELLS 1+
[2019-10-24] MEDS: FEXOFENADINE 60 MG TAB PO SCH (09:00)
[2019-10-24] MEDS ORDERED: CYANOCOBALAMIN 1,000 MCG/ML VIAL (J3420) SC SCH (09:00)
--- NOTE | 2019-10-24 11:54 | IPNPDOC ---
Date Seen The patient was seen on 10/24/19. Progress Note REASON FOR F/U: Pancytopenia. S: Up in bed, not in distress, [id number] Feels well, denies cp, sob, palp, fatigue no abd pain/n/v/c/d no pain or bleeding at any site all admission symptoms remains resolved per patient no fevers, chills, NS wants to go home no complaints PMH/PSH: Chronic low back pain since delivery in 2018 chronic constipation since childhood. MEDS: Reviewed in EMR ALLERGIES: NKDA. VITAL SIGNS: Reviewed in EMR - stable. PHYSICAL EXAM: HEENT: Oral mucosa - pink and moist, no conjunctival pallor, sclera anicteric bilaterally. LUNGS: Clear to auscultation bilaterally, resonant to percussion bilaterally. HEART: Regular rhythm, no murmurs, no S3, S4, no rubs. ABDOMEN: Soft, nontender, bowel sounds normoactive, no hepatosplenomegaly. EXTREMITIES: No edema bilaterally. Calves, nontender bilaterally. SKIN/NAILS: No nail changes. No petechiae/ecchymosis. Tatoos- bilateral forearms and chest. No rashes. INVESTIGATIONS: Reviewed in the EMR. ASSESSMENT/PLAN: 1. 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 20 pound weight loss in one month w/ elevated LDH> 4000, pancytopenia - CT CAP - no acute pathology, no evidence of malignancy - Wt loss could be 2/2 hypermetabolic state from significant b12 def 3. Neutropenic fever- cultures neg, afebrile x 2 days - s/p IV abx, recommend to complete 14 day course of abx po. D/W Dr. Ahuja/IM resident. F/u early next week upon d/c, [facility] - d/w Roselyn POZO. All of the above was relayed to the patient who was given an opportunity to ask questions that were answered to satisfaction. The patient voiced an understanding and agreed to proceed. VS, I&O, 24H, Fishbone Vital Signs/I&O Vital Signs Date Time Temp Pulse Resp B/P (MAP) Pulse Ox O2 Delivery O2 Flow Rate FiO2 10/24/19 06:00 98.8 62 17 98/58 (71) 99 Room Air I&O- Last 24 Hours up to 6 AM 10/24/19 06:00 Intake Total 2070 ml Output Total 1800 ml Balance 270 ml Laboratory Data 24H LABS Laboratory Tests 2 10/24/19 06:18: Neutrophils # (Auto) , Nucleated Red Blood Cells % (auto) 0.0, Neutrophils 25L, Lymphocytes (Manual) 53H, Monocytes (Manual) 9H, Eosinophils (Manual) 11H, Atypical Lymphocytes 2, Poikilocytosis 1+, Anisocytosis 1+, Tear Drop Cells 1+, Ovalocytes 1+, Platelet Estimate MARKED DECREASE, Immature Platelet Fraction 6.6, Anion Gap 6L, Glomerular Filtration Rate > 60.0, Calcium Level 8.0L, Total Bilirubin 0.7, Aspartate Amino Transf (AST/SGOT) 19, Alanine Aminotransferase (ALT/SGPT) 23, Alkaline Phosphatase 30L, Total Protein 6.0L, Albumin 3.2, Albumin/Globulin Ratio 1.14 CBC/BMP Laboratory Tests 10/24/19 06:18 Microbiology Microbiology 10/20/19 Respiratory Virus Panel (PCR) ([facility]) - Final, Complete 10/19/19 Blood Culture - Preliminary, Resulted No Growth after 72 hours. All specime... 10/19/19 Blood Culture - Preliminary, Resulted No Growth after 72 hours. All specime... HSAEEB MONTES MD Oct 24, 2019 11:54
[2019-10-24] MEDS ORDERED: LEVA1TAB2 PO (12:01)
[2019-10-24] MEDS ORDERED: CYAN1000VL SC (12:01)
[2019-10-27] MEDS ORDERED: CYAN1000VL IM (15:31)
--- NOTE | 2019-10-28 21:20 | DS.PDOC ---
Discharge Summary General Date of Admission Oct 19, 2019 at 19:06 Date of Discharge 10/24/19 Attending Physician: NIMO LEIJA MD Specialist/Consultants Involve: HASEEB ALTAMIRANO MD Discharge Summary PROCEDURES PERFORMED DURING STAY: None ADMITTING DIAGNOSES: Pancytopenia Elevated transaminases Fever Hyponatremia DISCHARGE DIAGNOSES: Symptomatic anemia Vitamin B12 deficiency Pancytopenia COMPLICATIONS/CHIEF COMPLAINT: Weakness for one month; Symptomactic Anemia. HISTORY OF PRESENT ILLNESS & HOSPITAL COURSE: Yajaira is a 24-year-old -[place] female presents the emergency department on 10/19/19 with symptoms of diminished appetite, dizziness and blurred vision upon standing, and significant fatigue. Her fatigue onset was one month ago and she continues to feel tired after adequate night, sleeps. In terms of her diminished appetite, she began eating only one meal a day rather than her usual 3, simply because she did not feel hungry. Over the past 2-3 days prior to this presentation patient's fatigue worsened and last night she experienced chills. She denied having any similar symptom presentation to this in the past. She has accompanying right lower quadrant pain that she describes to constipation over this past week. She denies any recent extensive travel. She has been around her young daughter who has a cold. Her is active in the . 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 She has a past history of being diagnosed with anemia while p [facility], but has not been anemic prior to that or since. Patient presented to her primary care physician on 10/16/19 was subsequently advised her to present to the hospital for further assessment. Patient decided not to go to the hospital. She did not feel "bad" at that time. It wasn't until the last couple days when the fatigue worsened in the chills began that she felt "bad enough" to come to the emergency department. On workup during Hospital course, patient's B12 level was found to be 107 on 10/20, and she subsequently was started on subcutaneous daily B12 injections. Her B12 levels quickly improved, but white count and platelets remained critically low. At two different times in her stay, her calculated absolute neutrophil count indicated severe neutropenia and she was placed on neutropenic precautions with neutropenic diet. A peripheral blood smear showed revealed teardrop cells, and lab testing showed elevated LDH and decreased haptoglobin, consistent with a hemolytic process. Further serologic studies showed the patient had significantly elevated anti-intrinsic factor antibody indicating patient lacks ability to properly absorb B12. At time of discharge, results were still pending from a flow cytometry study sent to [facility]. Patient was given discharge prescription for 1000 g/1 mL vial daily cyanocobalamin injections to carry her to her outpatient hematology oncology appointment next week. She was also prescribed 9 days of Levaquin 500 mg PO bid to complete a 14 day antibiotic course for monotherapy for neutropenia/neutropenic fever precaution, which she began with cefepime as inpatient on 10/20. DISCHARGE MEDICATIONS: Please see below. ALLERGIES: Please see below. PHYSICAL EXAMINATION ON DISCHARGE: VITAL SIGNS: Please see below. GENERAL: Young, interactive -[place]au[place] female. She is alert and oriented 3 and in no apparent acute distress. HEENT: Normocephalic, atraumatic. Anicteric and noninjected sclera. Trachea is midline. CARDIOVASCULAR: Regular rate with regular rhythm. S1, S2 auscultated. No murmurs or rubs appreciated. RESPIRATORY: Clear to auscultation bilaterally, anteriorly and posteriorly. No wheezes, crackles or rhonchi appreciated. Breathing on room air. Symmetric chest expansion with adequate tidal volume. ABDOMINAL: Soft, nondistended. Nontender. No guarding, rebound or rigidity appreciated. Bowel sounds present all 4 quadrants. EXTREMITIES: 2+ radial and posterior tibial pulses bilaterally. No lower extremity edema. NEUROLOGICAL: Awake, alert and oriented 3. No focal neurological deficits appreciated. Responds appropriately to questions and commands. PSYCHOLOGICAL: Affect and mood appear appropriate. LABORATORY DATA: Please see below. IMAGING: Abdomen flat plate (KUB) x-ray, 10/20/19: No bowel obstruction or perforation with mild fecal stasis. No organomegaly. No abnormal calcifications. Liver ultrasound, 10/20/19: Essentially negative abdominal right upper quadrant ultrasound. Portable chest x-ray, 10/20/19: Lung benjamin are clear with normal cardiac size. Probable fracture of the right humeral neck, age indeterminate. Hilum and mediastinum are unremarkable. There is mild scoliosis, convex right. CT abdomen/pelvis with IV and oral contrast, 10/22/19: There is no adenopathy or ascites. Liver and spleen are unremarkable. There are no lytic, blastic or destructive skeletal changes. There is a right ovarian cyst. Otherwise, negative CT of the abdomen and pelvis. CT chest without contrast, 10/22/19: No acute findings. PROGNOSIS: Good at this stage, pending further outpatient hematology oncology workup. ACTIVITY: As tolerated DIET: As tolerated DISPOSITION: 01 Home, Self-Care. DISCHARGE INSTRUCTIONS & ITEMS TO FOLLOWUP ON ON OUTPATIENT: -Follow-up with hematology oncology (Dr. Haseeb Altamirano) as outpatient at [facility] beginning week of 10/27 -Follow-up with primary care provider within next 3-5 days -Should symptoms that precipitated this hospital presentation. Return or acutely worsen, or should patient experience acute medical emergency of any kind, she is instructed to return to the emergency department immediately/seek immediate medical care DISCHARGE CONDITION: Stable TIME SPENT ON DISCHARGE: Total time spent on discharge including coordination of care, review of chart documentation, and actual patient contact was greater than 35 minutes. Vital Signs/I&Os Vital Signs Date Time Temp Pulse Resp B/P (MAP) Pulse Ox O2 Delivery O2 Flow Rate FiO2 10/24/19 06:00 98.8 62 17 98/58 (71) 99 Room Air Microbiology Microbiology 10/20/19 Respiratory Virus Panel (PCR) ([facility]) - Final, Complete 10/19/19 Blood Culture - Final, Complete NO GROWTH AFTER 5 DAYS 10/19/19 Blood Culture - Final, Complete NO GROWTH AFTER 5 DAYS Discharge Medications Scheduled Cyanocobalamin (Cyanocobalamin Injection) 1,000 Mcg/1 Ml Vial, 1,000 MCG SC DAILY Cyanocobalamin (Cyanocobalamin Injection) 1,000 Mcg/1 Ml Vial, 1,000 MCG IM MTHLY Levofloxacin (Levaquin) 500 Mg Tablet, 500 MG PO DAILY Allergies Coded Allergies: No Known Allergies (Unverified , 10/19/19) TIMMY RONQUILLO D.O. Oct 28, 2019 21:20
== END 2019-10-24 13:51 | disposition home or self-care (01) | DRG 810 ==
LOC: M ED 15:45 → M ED INP 19:06 → ENRESERVDT 20:31 → ENRESERVTM 20:31 → M MSPAV 20:50
PROVIDERS: ADMIT Internal Medicine; ATTEND Internal Medicine
DX: D61.818 Other pancytopenia (principal); K59.09 Other constipation; G89.29 Other chronic pain; M54.5 Low back pain; R70.1 Abnormal plasma viscosity; E53.8 Deficiency of other specified B group vitamins; N83.201 Unspecified ovarian cyst, right side; R74.0 Nonspecific elevation of levels of transaminase and lactic acid dehydrogenase [LDH]

== ENCOUNTER → 2020-02-02 | Outpatient (REF) | payer OTHER ==
[~2020-02-02] MED LIST: CYAN1000VL IM; CYAN1000VL SC; LEVA1TAB2 PO
[2020-02-02 11:52] LABS: BASO # 0.1 10^3/uL (0.0-0.2); BASO % 0.9 % (0.0-1.0); EOS # 0.3 10^3/uL (0.0-0.5); EOS % 4.1 % (0.0-3.0); HEMOGLOBIN 15.3 g/dl (12.0-15.5); LYMPH # 2.3 10^3/uL (1.5-5.0); LYMPH % 33.1 % (24.0-44.0); MEAN CORPUSCULAR HEMOGLOBIN 26.7 pg (27.0-33.0); MEAN CORPUSCULAR HGB CONC 31.9 g/dl (32.0-36.5); MEAN CORPUSCULAR VOLUME 83.6 fl (80.0-96.0); MONO # 0.5 10^3/uL (0.0-0.8); MONO % 6.4 % (0.0-5.0); NEUTROPHILS # 3.9 10^3/uL (1.5-8.5); NEUTROPHILS % 55.4 % (36.0-66.0); PLATELET COUNT, AUTOMATED 306 10^3/uL (150-450); RED BLOOD COUNT 5.74 10^6/uL (4.00-5.40)
[2020-02-02 12:13] LABS: ALBUMIN 3.3 GM/DL (3.2-5.2); ALT/SGPT 21 U/L (12-78); BILIRUBIN,TOTAL 0.5 MG/DL (0.2-1.0); BLOOD UREA NITROGEN 12 MG/DL (7-18); CALCIUM LEVEL 9.1 MG/DL (8.5-10.1); CARBON DIOXIDE LEVEL 28 MEQ/L (21-32); CHLORIDE LEVEL 105 MEQ/L (98-107); CHOLESTEROL LEVEL 215 MG/DL (<200); CREATININE FOR GFR 0.78 MG/DL (0.55-1.30); FERRITIN 40 NG/ML (8-252); FOLATE > 24.0 NG/ML; GLOMERULAR FILTRATION RATE > 60.0 (>60); GLUCOSE, FASTING 95 MG/DL (70-100); HDL CHOLESTEROL 50 MG/DL (>40); IRON (FE) 103 UG/DL (50-170); LDL CHOLESTEROL 140 MG/DL (<100); NON-HDL-C 165 MG/DL; POTASSIUM SERUM 4.4 MEQ/L (3.5-5.1); SODIUM LEVEL 139 MEQ/L (136-145); TOTAL 25(OH) VITAMIN D 50.5 NG/ML (30.0-100.0); TOTAL PROTEIN 7.4 GM/DL (6.4-8.2); TRIGLYCERIDES LEVEL 126 MG/DL (<150); VITAMIN B12 LEVEL 290 PG/ML
[2020-02-02 13:25] LABS: APPEARANCE, URINE CLEAR (CLEAR); BACTERIA, URINE AUTO 1+ (NEGATIVE); BILIRUBIN, URINE AUTO NEGATIVE (NEGATIVE); BLOOD, URINE BLOOD NEGATIVE (NEGATIVE); COLOR, URINE YELLOW (YELLOW); GLUCOSE, URINE (UA) AUTO NEGATIVE (NEGATIVE); KETONE, URINE AUTO NEGATIVE (NEGATIVE); LEUKOCYTE ESTERASE, URINE AUTO NEGATIVE (NEGATIVE); NITRITE, URINE AUTO NEGATIVE (NEGATIVE); PROTEIN, URINE AUTO 2+ mg/dL (NEGATIVE); RBC, URINE AUTO 1 /HPF (0-3); SPECIFIC GRAVITY URINE AUTO 1.012 (1.002-1.035); SQUAMOUS EPITHELIAL CELL UR AU 0 /HPF (0-6); UROBILINOGEN, URINE AUTO 0.2 mg/dL (0.0-2.0); WBC, URINE AUTO 0 /HPF (0-3)
== END ==
LOC: M LAB REF 11:22
PROVIDERS: ATTEND Nurse Practitioner Family
DX: K59.00 Constipation, unspecified (principal); K76.89 Other specified diseases of liver; E55.9 Vitamin D deficiency, unspecified; D64.9 Anemia, unspecified; Z13.9 Encounter for screening, unspecified

== ENCOUNTER → 2020-02-05 | Outpatient (CLI) | payer OTHER ==
[2020-02-05 12:40] LABS: ALBUMIN 3.2 GM/DL (3.2-5.2); ALT/SGPT 18 U/L (12-78); BILIRUBIN,DIRECT < 0.1 MG/DL (0.0-0.2); BILIRUBIN,TOTAL 0.3 MG/DL (0.2-1.0); FERRITIN 29 NG/ML (8-252); IMMUNOGLOBULIN A 90.7 MG/DL (70-400); IRON (FE) 69 UG/DL (50-170); PERCENT SATURATION 19.1 % (13.2-45.0); TOTAL IRON BINDING CAPACITY 361 UG/DL (250-450); TOTAL PROTEIN 7.1 GM/DL (6.4-8.2)
[2020-02-05 14:33] LABS: FOLATE > 24.0 NG/ML; VITAMIN B12 LEVEL 193 PG/ML
[2020-02-07 08:10] LABS: ANTI-MITOCHONDRIAL ANTIBODY <20.0 Units (0.0-20.0); ANTI-SMOOTH MUSCLE ANTIBODY 10 Units (0-19); ANTINUCLEAR ANTIBODIES DIRECT Negative (Negative); CERULOPLASMIN 29.1 mg/dL (19.0-39.0); IGASUB2 64.6 mg/dL (73.2-301.2); IGASUB3 21.6 mg/dL (13.4-97.9); IgA SERUM (part of Subclasses) 85 mg/dL (87-352); LIVER-KIDNEY MICROSOMAL ABY <20.1 Units (0.0-20.0); TISSUE TRANSGLUTAMINASE IgA <2 U/mL (0-3)
== END ==
LOC: M LAB 10:52
PROVIDERS: ATTEND Internal Medicine Gastroenterology
DX: D51.0 Vitamin B12 deficiency anemia due to intrinsic factor deficiency (principal)

== ENCOUNTER → 2020-03-15 | Outpatient (REF) | payer OTHER ==
[2020-03-15 13:31] LABS: CHLAMYDIA DNA AMPLIFICATION NEGATIVE (NEGATIVE); GC DNA AMPLIFICATION NEGATIVE (NEGATIVE)
== END ==
LOC: M LAB REF 11:32
PROVIDERS: ATTEND Nurse Practitioner Family
DX: Z11.3 Encounter for screening for infections with a predominantly sexual mode of transmission (principal); Z12.4 Encounter for screening for malignant neoplasm of cervix

== ENCOUNTER 2020-05-18 07:15 | Day surgery (SDC) | payer OTHER ==
[~2020-05-18 07:15] MED LIST changes: +ADVO0.5M2 SC; +BD I1MIS14 SC; +VITA2500 SL; +[UNRECOGNIZED DRUG - OTHER] PO
[2020-05-18] MEDS ORDERED: LIDOCAINE 2% 100MG/5ML SDV (FOR ANES.) ONE (08:44)
[2020-05-18] MEDS ORDERED: propofoL 200 MG/20 ML VIAL ONE (08:44)
--- NOTE | 2020-06-09 11:35 | ROOR ---
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 Procedure: Pre-Anesthesia Assessment: - Prior to the procedure, a History and Physical was performed, and patient medications and allergies were reviewed. The patient is competent. The risks and benefits of the procedure and the sedation options and risks were discussed with the patient. All questions were answered and informed consent was obtained. Patient identification and proposed procedure were verified by the physician, the nurse and the anesthesiologist in the procedure room. Mental Status Examination: alert and oriented. Airway Examination: normal oropharyngeal airway and neck mobility. Respiratory Examination: clear to auscultation. CV Examination: normal. Prophylactic Antibiotics: The patient does not require prophylactic antibiotics. Prior Anticoagulants: The patient has taken no previous anticoagulant or antiplatelet agents. ASA Grade Assessment: II - A patient with mild systemic disease. After reviewing the risks and benefits, the patient was deemed in satisfactory condition to undergo the procedure. The anesthesia plan was to use monitored anesthesia care (MAC). Immediately prior to administration of medications, the patient was re-assessed for adequacy to receive sedatives. The heart rate, respiratory rate, oxygen saturations, blood pressure, adequacy of pulmonary ventilation, and response to care were monitored throughout the procedure. The physical status of the patient was re-assessed after the procedure. The Endoscope was introduced through the mouth, and advanced to the second part of duodenum. The upper GI endoscopy was accomplished without difficulty. The patient tolerated the procedure well. Findings: The examined esophagus was normal. The Z-line was regular and was found in the distal esophagus. Scattered mild inflammation characterized by erythema and granularity was found in the gastric antrum and in the prepyloric region of the stomach. Four biopsies were obtained with cold forceps for histology in the gastric antrum, as well as four biopsies in the gastric body. Verification of patient identification for the specimen was done by the physician and nurse using the patient's name, date and medical record number. Estimated blood loss was minimal. The duodenal bulb, second portion of the duodenum and area of the papilla were normal. Biopsies for histology were taken with a cold forceps for evaluation of celiac disease. Impression: - Normal esophagus. - Z-line regular, in the distal esophagus. - Gastritis. - Normal duodenal bulb, second portion of the duodenum and area of the papilla. Biopsied. - Biopsies performed in the gastric antrum and in the gastric body. Recommendation: - Patient has a contact number available for emergencies. The signs and symptoms of potential delayed complications were discussed with the patient. Return to normal activities tomorrow. Written discharge instructions were provided to the patient. - High fiber diet. - Continue present medications. - Await pathology results. - Telephone GI clinic for pathology results in 2 weeks. - Return to primary care physician. Marky Rueda MD 05/18/2020 9:15:06 AM Number of Addenda: 0 Note Initiated On: 05/18/2020 8:39 AM Estimated Blood Loss: Estimated blood loss was minimal.
== END 2020-05-18 18:10 | disposition home or self-care (01) ==
LOC: M SDC 07:15
PROVIDERS: ATTEND Internal Medicine Gastroenterology
DX: K29.70 Gastritis, unspecified, without bleeding (principal); D51.0 Vitamin B12 deficiency anemia due to intrinsic factor deficiency

== ENCOUNTER → 2020-07-05 | Outpatient (REF) | payer OTHER ==
[2020-07-05 15:27] LABS: HEMATOCRIT 40.2 % (36.0-47.0); HEMOGLOBIN 12.8 g/dl (12.0-15.5); MEAN CORPUSCULAR HEMOGLOBIN 27.7 pg (27.0-33.0); MEAN CORPUSCULAR HGB CONC 31.8 g/dl (32.0-36.5); PLATELET COUNT, AUTOMATED 323 10^3/uL (150-450); RED BLOOD COUNT 4.62 10^6/uL (4.00-5.40); WHITE BLOOD COUNT 13.4 10^3/uL (4.0-10.0)
[2020-07-05 15:52] LABS: ALT/SGPT 17 U/L (12-78); BILIRUBIN,TOTAL 0.4 MG/DL (0.2-1.0); CREATININE FOR GFR 0.73 MG/DL (0.55-1.30); GLOMERULAR FILTRATION RATE > 60.0 (>60); LDH LACTATE DEHYDROGENASE 196 U/L (84-246); URIC ACID 3.5 MG/DL (2.6-6.0)
[2020-07-05 16:02] LABS: TOTAL PROTEIN,RANDOM URINE 404.7 MG/DL (0.0-12.0)
[2020-07-05 16:36] LABS: HEPATITIS C VIRUS ABY INDEX 0.2 INDEX (<0.8); HIV 1&2 SCREEN CENTAUR NEGATIVE (NEGATIVE)
== END ==
LOC: M PLALAB 11:48
PROVIDERS: ATTEND Advanced Practice Midwife
DX: Z34.91 Encounter for supervision of normal pregnancy, unspecified, first trimester (principal)

== ENCOUNTER → 2020-07-07 | Outpatient (REF) | payer OTHER | LOC: M PLALAB 19:05 | PROVIDERS: ATTEND Advanced Practice Midwife | DX: Z01.84 Encounter for antibody response examination (principal) ==

== ENCOUNTER → 2020-07-09 | Outpatient (CLI) | payer OTHER | LOC: M PLALAB 11:07 | PROVIDERS: ATTEND Advanced Practice Midwife | DX: Z01.84 Encounter for antibody response examination (principal) ==

== ENCOUNTER → 2020-09-07 | Outpatient (REF) | payer OTHER | LOC: M PLALAB 09:34 | PROVIDERS: ATTEND Advanced Practice Midwife | DX: O99.012 Anemia complicating pregnancy, second trimester (principal); Z3A.00 Weeks of gestation of pregnancy not specified; D51.0 Vitamin B12 deficiency anemia due to intrinsic factor deficiency ==

== ENCOUNTER → 2020-09-08 | Outpatient (CLI) | payer OTHER ==
--- NOTE | 2020-09-08 17:10 | REP ---
INDICATION: ANATOMY. COMPARISON: None TECHNIQUE: Real-time sonographic evaluation of the gravid uterus performed. FINDINGS: Estimated gestational age is19 weeks 1 day, EDC 02/01/2021. Presentation: Cephalic Placenta anterior, grade 1, without evidence of placenta previa. heart rate is recorded at 152 beats per minute. Amniotic fluid is subjectively normal. Closed cervical length is measured at 3.9 cm. Biometry chart: BPD: 45 mm, 19 weeks 5 days, 67th percentile. HC: 160 mm, 18 weeks 6 days, 41st percentile AC: 137 mm, 19 weeks 1 days, 50th percentile Femur length: 30 mm, 19 weeks 1 days, 53rd percentile HC to AC ratio: 1.17, normal range 1.06-1.25. Estimated weight: 275g, 48th percentile. anatomy: Cranium: Grossly normal Lateral Ventricles/Choroid Plexus: Grossly normal Posterior Fossa/Cerebellum: Grossly normal Nose/lips/profile: Grossly normal Four chamber heart: Grossly normal Right ventricular outflow tract: Grossly normal Left ventricular outflow tract: Grossly normal Left-sided stomach: Grossly normal Kidneys: Grossly normal Bladder: Grossly normal Cord Insertion: Grossly normal 3 vessel cord: Grossly normal Spine: Grossly normal IMPRESSION: Viable single intrauterine gestation as above. <Electronically signed by Xiang Quinonez > 09/08/20 [id number]
== END ==
LOC: M WHC 14:50
PROVIDERS: ATTEND Advanced Practice Midwife
DX: Z34.92 Encounter for supervision of normal pregnancy, unspecified, second trimester (principal); Z3A.19 19 weeks gestation of pregnancy
CPT/HCPCS: 76811; G0463

== ENCOUNTER → 2020-10-20 | Outpatient (REF) | payer OTHER ==
[2020-10-20 15:11] LABS: HEMATOCRIT 35.5 % (36.0-47.0); HEMOGLOBIN 11.3 g/dl (12.0-15.5); MEAN CORPUSCULAR HEMOGLOBIN 28.1 pg (27.0-33.0); MEAN CORPUSCULAR HGB CONC 31.8 g/dl (32.0-36.5); MEAN CORPUSCULAR VOLUME 88.3 fl (80.0-96.0); PLATELET COUNT, AUTOMATED 282 10^3/uL (150-450); RED BLOOD COUNT 4.02 10^6/uL (4.00-5.40); WHITE BLOOD COUNT 10.2 10^3/uL (4.0-10.0)
== END ==
LOC: M PLALAB 12:07
PROVIDERS: ATTEND Advanced Practice Midwife
DX: Z34.92 Encounter for supervision of normal pregnancy, unspecified, second trimester (principal)
CPT/HCPCS: 36415; 82950; 85027; 86850; 86886; 86900; 86901; J2790

== ENCOUNTER → 2021-01-10 | Outpatient (REF) | payer OTHER | LOC: M PLALAB 11:44 | PROVIDERS: ATTEND Obstetrics & Gynecology | DX: Z36.85 Encounter for antenatal screening for Streptococcus B (principal); Z3A.36 36 weeks gestation of pregnancy | CPT/HCPCS: 87081; G0463 ==

== ENCOUNTER 2021-02-05 02:27 | Inpatient (IN) | payer OTHER ==
[~2021-02-05] VITALS: Ht 162.6 cm; Wt 86.5 kg
[2021-02-05] VITALS (8 sets, daily range): BP systolic 127–150; BP diastolic 62–87
[2021-02-05] MEDS ORDERED: LACTATED RINGER'S 1000 ML IV STA (03:04)
[2021-02-05] MEDS ORDERED: METHYLERGONOVINE MALEATE 0.2 MG/ML VIAL (J2210) IM PRN (03:05)
[2021-02-05] MEDS ORDERED: OXYTOCIN DRIP 30 UNITS in IV 1 EA IV PRN (03:05)
[2021-02-05] MEDS ORDERED: LIDOCAINE 1% MDV 20ML VIAL INFIL PRN (03:05)
--- NOTE | 2021-02-05 03:18 | HPEPDOC ---
Obstetrical History & Physical General Date of Admission February 05, 2021 at 03:04 History of Present Illness Chief Complaint: Contractions, term Age: 25 : 2 Term: 1 Pre-term: 0 Abortions: 0 Livin Care Care: Good Care Dating Final EDC: February 07, 2021 Final EDC by: LMP EGA at Admission: 39 (+5) Antepartum Course Pre- weight (lbs.): 147.2 Admission Weight (lbs.): 181 Past Medical History Past Obstetrical History : Past Obstetrical History: Primgravida (2017) Type of Delivery: Spontaneous Vaginal Del. 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 History: No pertinent history Past Medical History Medical History pernicious anemia Surgical History: Denies/None Family History Significant Family History: Diabetes Social History Marital Status: Family situation: Spouse/partner home Psychosocial History: No pertinent psych hx * Smoker: non-smoker Alcohol: Denies Drugs: denies Abuse Violence Screening Have you been hit/kicked/slapp: No Have you been sexually assault: No Imunizations Tdap status: current Allergies Coded Allergies: No Known Allergies (Unverified , 04/07/20) Medications Scheduled Cyanocobalamin (Cyanocobalamin Injection) 1,000 Mcg/1 Ml Vial, 1 ML IM Q30D [vitamin b-9] , Unknown Dose PO QWEEK Physical Examination Physical Examination GENERAL: Alert and oriented times three. BREAST: . ABDOMEN: Gravid and non-tender to touch. FETUS: Is vertex (VTX) by sterile vaginal examination (SVE), fetus is vertex (VTX) by Saad. EFW 8.5# HEART RATE: Regular rate and rhythm. LUNGS: Clear to auscultation (CTA). EXTREMITIES: No edema. No clonus. Deep tendon reflexes (DTRs) + 2. Pertinent Laboratoy Data Blood Type: B- RBC Antibody Screen: Positive HIV: Negative Hepatitis B: Negative Hepatitis C: Negative Rapid Plasma Reagin: Nonreactive Rubella: Immune Chlamydia/Gonorrhea: Negative Group B Streptococcus: Negative Glucose Tolerance Test: 108 Anatomy Ultrasound Ultrasound Date: Sep 08, 2020 Placenta Location: Anterior Normal Anatomy: Yes Placenta Previa: No Estimated Weight (grams): 275 (48%) Other Ultrasounds 07/05/2020 dating 9w5d Steroid Therapy Steroid Therapy: No Vaginal Examination Dilation: 4 cm (-5) Effacement: 80% Station: -2 Cervical Consistency: Soft Cervical Position: Middle Presentation: Cephalic presentation Assessment Heart Rate (FHR): 130 Variability: Moderate Accelerations: Positive Decelerations: None Tocometer Contractions: Yes Frequency: regular, every 3-7 min. Duration: greater than 60 seconds Strength: palpated as moderate Assessment/Plan Assessment Yajaira is a 25-year-old (G)2 para (P)1-0-0-1 at 39+5 weeks by 9-week ultrasound. Presents to Labor and Delivery (L&D) with reports of contractions and bloody show. Denies LOF. Reports good movement. Plan Admit and orient. 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 Diet: clear liquids. Group B Streptococcus (GBS) negative. Labs and intravenous (IV) per unit protocol. Counseled on Pitocin and induction of labor (IOL). Lactated Ringers (LR): Bolus 500 mL, then saline lock. Plans to labor ad han Anticipate normal spontaneous delivery () C-S as appropriate. Susan Robins CNM February 05, 2021 03:18
[2021-02-05] MEDS ORDERED: PROMETHAZINE INJ 25 MG/ML VIAL (J2550) IV ONE (03:20)
[2021-02-05] MEDS ORDERED: BUTORPHANOL 2 MG/ML INJ (J0595) IV ONE (03:20)
[2021-02-05 03:30] LABS: HEMATOCRIT 38.4 % (36.0-47.0); HEMOGLOBIN 12.6 g/dl (12.0-15.5); MEAN CORPUSCULAR HGB CONC 32.8 g/dl (32.0-36.5); MEAN CORPUSCULAR VOLUME 85.3 fl (80.0-96.0); PLATELET COUNT, AUTOMATED 215 10^3/uL (150-450); WHITE BLOOD COUNT 10.6 10^3/uL (4.0-10.0)
[2021-02-05 04:23] LABS: CORD GAS ABE A -3.8; CORD GAS O2 SAT A 96.9 %; CORD GAS PCO2 A 37.4 mmHg; CORD GAS PH A 7.367 UNITS; CORD GAS PO2 A 67.3 mmHg; CORD GAS SBC A 21.4 MEQ/L; CORD GAS TCO2 A 22.1 MEQ/L
[2021-02-05 04:25] LABS: CORD GAS ABE V -3.6; CORD GAS HCO3 V 20.6 MEQ/L; CORD GAS O2 SAT V 98.2 %; CORD GAS PCO2 V 35.2 mmHg; CORD GAS PH V 7.385 UNITS; CORD GAS PO2 V 75.9 mmHg; CORD GAS SBC V 21.5 MEQ/L; CORD GAS TCO2 V 21.7 MEQ/L
[2021-02-05] MEDS ORDERED: DOCUSATE SODIUM 100MG CAPSULE PO PRN (04:25)
[2021-02-05] MEDS ORDERED: MEASLES,MUMPS,RUBELLA VACCINE INJ (MMR-II) (90707) SC SCH (04:25)
[2021-02-05] MEDS ORDERED: ACETAMINOPHEN TAB 650MG DOSE (2X325MG) PO PRN (04:25)
[2021-02-05] MEDS ORDERED: RHOGAM 300 MCG (1500 IU) INJ (J2790) IM SCH (04:25)
[2021-02-05] MEDS ORDERED: DIBUCAINE 1% OINTMENT 30GM TOP PRN (04:25)
[2021-02-05] MEDS ORDERED: OXYTOCIN DRIP 30 UNITS in IV 1 EA IV SCH (04:25)
[2021-02-05] MEDS ORDERED: ANUSOL HC CREAM 30GM TOP PRN (04:25)
[2021-02-05] MEDS ORDERED: MOM 30ML SUSPENSION UDC PO PRN (04:25)
[2021-02-05] MEDS ORDERED: ACETAMINOPHEN 500 MG TAB PO PRN (04:25)
[2021-02-05] MEDS ORDERED: METHYLERGONOVINE MALEATE 0.2 MG TAB PO PRN (04:25)
--- NOTE | 2021-02-05 04:31 | DNPDOC ---
[facility] Delivery Note Delivery Note DATE OF DELIVERY: 02/05/2021 PREDELIVERY DIAGNOSIS: 39+5/7 weeks' gestation and labor. POST DELIVERY DIAGNOSIS: Delivered. PROCEDURE: Spontaneous vaginal delivery PROVIDER: Susan Robins CNM ANESTHESIA: None ESTIMATED BLOOD LOSS: 300 mL. FINDINGS: 7 pound 9 ounce, 3420gm male , Score 8/9, nuchal cord times 1 tight. DELIVERY SUMMARY: Patient is a 25-year-old 2 now para 2-0-0-2 who was admitted to labor and delivery for labor. She utilized physiologic coping. AROM moderate clear fluid 0351. Fully dilated 0402. Viable male delivered AMY, somersaulted through a tight nuchal cord @ 0406. Shoulders delivered with ease. Spontaneous respirations. Cord gases obtained and pending. Cord doubly clamped and cut by FOB under my direction once pulsations ceased. Apgars 8/9. Placenta franz, intact with 3v cord 0411. Fundus firmed with massage and IV bolus premixed pitocin. EBL 300ml. Cervix, vagina, perineum inspected. Small left labial abrasion noted. no repair needed. Sponge, sharp and instrument count correct. Parents are naming their son Susan Robins CNM February 05, 2021 04:31
[2021-02-05] MEDS: IBUPROFEN 800 MG TAB PO PRN (04:49)
[2021-02-05] MEDS: PRENATAL VITAMINS CHEWABLE TABLET PO SCH (10:10)
[2021-02-06] MEDS: IBUPROFEN 800 MG TAB PO PRN (05:32)
[2021-02-06 05:51] VITALS: BP 137/64
[2021-02-06] MEDS: IBUPROFEN 600MG TAB PO PRN ×2 (09:08→17:27)
[2021-02-06] MEDS: PRENATAL VITAMINS CHEWABLE TABLET PO SCH (09:08)
== END 2021-02-06 18:50 | disposition home or self-care (01) | DRG 807 ==
LOC: M LDO 02:27 → M LDI 03:04 → M OBS 09:30
PROVIDERS: ADMIT Advanced Practice Midwife; ATTEND Advanced Practice Midwife
PROC: 10E0XZZ Delivery of Products of Conception, External Approach (ICD-10-PCS; principal; 2021-02-05)
PROC: 10907ZC Drainage of Amniotic Fluid, Therapeutic from Products of Conception, Via Natural or Artificial Opening (ICD-10-PCS; 2021-02-05)
DX: O69.1XX0 Labor and delivery complicated by cord around neck, with compression, not applicable or unspecified (principal); Z37.0 Single live birth; Z3A.39 39 weeks gestation of pregnancy

== ENCOUNTER → 2022-06-19 | Outpatient (REF) | payer OTHER ==
[~2022-06-19] MED LIST changes: +B-12100011 SL
== END ==
LOC: M LAB REF 10:40
PROVIDERS: ATTEND Advanced Practice Midwife
DX: Z12.4 Encounter for screening for malignant neoplasm of cervix (principal)
CPT/HCPCS: G0123; G0463